=== PATIENT | male | born 1950 | race Caucasian/White ===

== ENCOUNTER 2016-05-03 10:34 | Outpatient (CLI) | payer MEDICARE | END 2016-05-03 10:35 | disposition home or self-care (01) | DX: C91.10 Chronic lymphocytic leukemia of B-cell type not having achieved remission (principal) ==

== ENCOUNTER 2016-05-10 08:30 | Outpatient (CLI) | payer MEDICARE | END 2016-05-10 08:31 | disposition home or self-care (01) | DX: C91.10 Chronic lymphocytic leukemia of B-cell type not having achieved remission (principal) ==

== ENCOUNTER 2016-05-22 13:46 | Outpatient (CLI) | payer MEDICARE | END 2016-05-22 13:47 | disposition home or self-care (01) | DX: C91.10 Chronic lymphocytic leukemia of B-cell type not having achieved remission (principal) ==

== ENCOUNTER 2016-06-09 10:05 | Outpatient (CLI) | payer MEDICARE | END 2016-06-09 10:06 | disposition home or self-care (01) | DX: C91.10 Chronic lymphocytic leukemia of B-cell type not having achieved remission (principal) ==

== ENCOUNTER 2016-07-16 09:43 | Outpatient (CLI) | payer MEDICARE | END 2016-07-16 09:44 | disposition home or self-care (01) | DX: R16.1 Splenomegaly, not elsewhere classified (principal); C91.10 Chronic lymphocytic leukemia of B-cell type not having achieved remission; D59.1 Other autoimmune hemolytic anemias ==

== ENCOUNTER 2016-07-16 09:48 | Outpatient (CLI) | payer MEDICARE | END 2016-07-16 09:49 | disposition home or self-care (01) | DX: C91.10 Chronic lymphocytic leukemia of B-cell type not having achieved remission (principal); R16.1 Splenomegaly, not elsewhere classified; D59.1 Other autoimmune hemolytic anemias ==

== ENCOUNTER 2016-07-21 10:10 | Outpatient (CLI) | payer MEDICARE | END 2016-07-21 10:11 | disposition home or self-care (01) | DX: C91.10 Chronic lymphocytic leukemia of B-cell type not having achieved remission (principal) ==

== ENCOUNTER 2016-07-24 09:18 | Outpatient (CLI) | payer MEDICARE | END 2016-07-24 09:19 | disposition home or self-care (01) | DX: C91.10 Chronic lymphocytic leukemia of B-cell type not having achieved remission (principal) ==

== ENCOUNTER 2016-08-09 09:19 | Outpatient (CLI) | payer MEDICARE | END 2016-08-09 09:20 | disposition home or self-care (01) | DX: C91.10 Chronic lymphocytic leukemia of B-cell type not having achieved remission (principal) ==

== ENCOUNTER 2016-08-25 09:50 | Outpatient (CLI) | payer MEDICARE | END 2016-08-25 09:51 | disposition home or self-care (01) | DX: C91.10 Chronic lymphocytic leukemia of B-cell type not having achieved remission (principal) ==

== ENCOUNTER 2016-09-05 09:53 | Outpatient (CLI) | payer MEDICARE | END 2016-09-05 09:54 | disposition home or self-care (01) | DX: C91.10 Chronic lymphocytic leukemia of B-cell type not having achieved remission (principal) ==

== ENCOUNTER 2016-11-23 10:35 | Outpatient (CLI) | payer MEDICARE ==
[2016-11-23 11:01] LABS: BASOPHILS % (AUTO) 0.2 %; EOSINOPHILS # (AUTO) 0.2 10^3/uL (0.0-0.7); EOSINOPHILS % (AUTO) 8.8 %; HCT - HEMATOCRIT 39.7 % (42.0-52.0); HGB - HEMOGLOBIN 13.6 g/dL (14.0-18.0); LYMPHOCYTES # (AUTO) 0.5 10^3/uL (1.5-3.5); LYMPHOCYTES % (AUTO) 27.2 %; MEAN CORPUSCULAR HEMOGLOBIN 29.4 pg (27.0-31.0); MEAN CORPUSCULAR HGB CONC 34.3 g/dL (32.0-36.0); MEAN CORPUSCULAR VOLUME 85.7 fL (80.0-94.0); MEAN PLATELET VOLUME 8.5 fL (7.4-11.4); MONOCYTES # (AUTO) 0.4 10^3/uL (0.0-1.0); MONOCYTES % (AUTO) 21.2 %; NEUTROPHILS # (AUTO) 0.8 10^3/uL (1.5-6.6); NEUTROPHILS % (AUTO) 42.6 %; NUCLEATED RED BLOOD CELLS AUTO 0.2 /100WBC; RED BLOOD COUNT 4.63 10^6/uL (4.70-6.10); RED CELL DISTRIBUTION WIDTH 14.8 % (12.0-15.0); UNCORRECTED WHITE BLOOD COUNT 1.9 x10^3/uL
[2016-11-23 12:08] LABS: PLATELET ESTIMATE, MANUAL NORMAL (130-450,000) (NORMAL); PLATELET MORPHOLOGY NORMAL APPEARANCE (NORMAL)
[2016-11-23 12:13] LABS: WHITE BLOOD COUNT 1.9 x10^3/uL (4.8-10.8)
== END 2016-11-23 10:36 | disposition home or self-care (01) ==
LOC: LAB 10:35
PROVIDERS: ATTEND Internal Medicine Medical Oncology
DX: C91.10 Chronic lymphocytic leukemia of B-cell type not having achieved remission (principal)
CPT/HCPCS: 36415; 85025

== ENCOUNTER 2016-12-21 10:59 | Outpatient (CLI) | payer MEDICARE ==
[2016-12-21 11:11] LABS: BASOPHILS % (AUTO) 0.4 %; EOSINOPHILS # (AUTO) 0.1 10^3/uL (0.0-0.7); EOSINOPHILS % (AUTO) 5.8 %; HCT - HEMATOCRIT 40.4 % (42.0-52.0); LYMPHOCYTES # (AUTO) 0.4 10^3/uL (1.5-3.5); LYMPHOCYTES % (AUTO) 20.2 %; MEAN CORPUSCULAR HEMOGLOBIN 29.3 pg (27.0-31.0); MEAN CORPUSCULAR HGB CONC 34.8 g/dL (32.0-36.0); MEAN CORPUSCULAR VOLUME 84.3 fL (80.0-94.0); MEAN PLATELET VOLUME 7.6 fL (7.4-11.4); MONOCYTES # (AUTO) 0.3 10^3/uL (0.0-1.0); MONOCYTES % (AUTO) 16.2 %; NEUTROPHILS # (AUTO) 1.1 10^3/uL (1.5-6.6); NEUTROPHILS % (AUTO) 57.4 %; NUCLEATED RED BLOOD CELLS AUTO 0.4 /100WBC; RED BLOOD COUNT 4.79 10^6/uL (4.70-6.10); RED CELL DISTRIBUTION WIDTH 14.2 % (12.0-15.0); UNCORRECTED WHITE BLOOD COUNT 1.9 x10^3/uL
[2016-12-21 11:27] LABS: WHITE BLOOD COUNT 1.9 x10^3/uL (4.8-10.8)
== END 2016-12-21 11:00 | disposition home or self-care (01) ==
LOC: LAB 10:59
PROVIDERS: ATTEND Internal Medicine Medical Oncology
DX: C91.10 Chronic lymphocytic leukemia of B-cell type not having achieved remission (principal)
CPT/HCPCS: 36415; 85025

== ENCOUNTER 2017-01-05 12:36 | Outpatient (CLI) | payer MEDICARE ==
[2017-01-05 12:50] LABS: BASOPHILS % (AUTO) 0.3 %; EOSINOPHILS # (AUTO) 0.1 10^3/uL (0.0-0.7); EOSINOPHILS % (AUTO) 9.1 %; HCT - HEMATOCRIT 40.3 % (42.0-52.0); HGB - HEMOGLOBIN 13.9 g/dL (14.0-18.0); LYMPHOCYTES # (AUTO) 0.3 10^3/uL (1.5-3.5); MEAN CORPUSCULAR HEMOGLOBIN 29.2 pg (27.0-31.0); MEAN CORPUSCULAR HGB CONC 34.5 g/dL (32.0-36.0); MEAN CORPUSCULAR VOLUME 84.7 fL (80.0-94.0); MEAN PLATELET VOLUME 7.7 fL (7.4-11.4); MONOCYTES # (AUTO) 0.4 10^3/uL (0.0-1.0); MONOCYTES % (AUTO) 43.6 %; NUCLEATED RED BLOOD CELLS AUTO 0.3 /100WBC; RED BLOOD COUNT 4.75 10^6/uL (4.70-6.10); RED CELL DISTRIBUTION WIDTH 14.4 % (12.0-15.0); UNCORRECTED WHITE BLOOD COUNT 0.9 x10^3/uL
[2017-01-05 15:11] LABS: WHITE BLOOD COUNT 0.9 x10^3/uL (4.8-10.8)
[2017-01-05 15:12] LABS: NEUTROPHILS # (AUTO) 0.1 10^3/uL (1.5-6.6)
== END 2017-01-05 12:37 | disposition home or self-care (01) ==
LOC: LAB 12:36
PROVIDERS: ATTEND Internal Medicine Medical Oncology
DX: C91.10 Chronic lymphocytic leukemia of B-cell type not having achieved remission (principal)
CPT/HCPCS: 36415; 85025

== ENCOUNTER 2017-01-07 13:54 | Inpatient (IN) | payer MEDICARE ==
--- NOTE | 2017-01-07 14:41 | ED Physician Documentation ---
History of Present Illness - Stated complaint Stated Complaint: LOW GRADE FEVER - Chief complaint Chief Complaint: Fever - History obtained from History obtained from: Patient, Family () - History of Present Illness Timing: Other (66-year-old gentleman with chronic lymphocytic leukemia currently getting most of his care at the [facility]. He got subcutaneous Rituxan on Sunday, on Sunday his neutrophil count was 250. 2 days ago was 100. He had a confirmed fever at home 100.8 orally earlier today associated with some myalgias but no focal symptoms other than mild persistent cough and chronic urinary issues due to BPH.) Review of Systems Ten Systems: 10 systems reviewed and negative Constitutional: reports: Fever, Chills, Myalgias Throat: denies: Dental pain / toothache, Sore throat Cardiac: denies: Chest pain / pressure, Palpitations GI: denies: Abdominal Pain, Nausea, Diarrhea : denies: Dysuria Skin: denies: Rash PD PAST MEDICAL HISTORY - Past Medical History Cardiovascular: Angina Respiratory: None Neuro: None Endocrine/Autoimmune: None GI: None : None HEENT: None Psych: None Musculoskeletal: None Derm: None - Past Surgical History General: Appendectomy - Present Medications Home Medications: Ambulatory Orders Medication Instructions Recorded Confirmed Vitamin B Complex 1 cap PO DAILY 10/19/14 01/07/17 Ascorbic Acid [Vitamin C] 1,000 mg PO DAILY 01/17/16 01/07/17 Acyclovir 800 mg PO BID 01/07/17 01/07/17 Aspirin 81 mg PO DAILY 01/07/17 01/07/17 Filgrastim [Neupogen] 01/07/17 Levofloxacin 500 mg PO DAILY 01/07/17 01/07/17 Neutra-Phos [K-Phos Neutral] 01/07/17 Pravastatin [Pravachol] 80 mg PO DAILY 01/07/17 01/07/17 Rituximab/Hyaluronidase,Human 01/07/17 [Rituxan Hycela 1,600 mg-26,800] Sulfamethox/Trimeth 800/160 1 tab PO DAILY 01/07/17 01/07/17 [Bactrim Ds] Tamsulosin [Flomax] 0.4 mg PO DAILY 01/07/17 01/07/17 - Allergies Allergies/Adverse Reactions: Allergies Allergy/AdvReac Type Severity Reaction Status Date / Time No Known Drug Allergies Allergy Verified 01/07/17 13:59 - Social History Smoking Status: Former smoker - Family History Family history: reports: Non contributory PD ED PE NORMAL - Vitals Vital signs reviewed: Yes - General General: Alert and oriented X 3, No acute distress - HEENT HEENT: PERRL, EOMI, Pharynx benign - Neck Neck: Supple, no meningeal sign, No bony TTP - Cardiac Cardiac: RRR, No murmur - Respiratory Respiratory: No respiratory distress, Clear bilaterally - Abdomen Abdomen: Normal bowel sounds, Soft, Non tender - Derm Derm: Normal color, Warm and dry, No rash - Neuro Neuro: Alert and oriented X 3, Normal speech - Psych Psych: Normal mood, Normal affect Results - Vitals Vitals: Vital Signs - 24 hr 01/07/17 01/07/17 13:57 15:48 Temperature 37.4 C 38.0 C H Heart Rate 83 74 Respiratory 20 16 Rate Blood Pressure 132/72 H 126/71 O2 Saturation 100 100 Oxygen O2 Source Room air - Labs Labs: Laboratory Tests 01/07/17 01/07/17 01/07/17 14:49 14:49 14:49 WBC 0.8 L* RBC 4.52 L Hgb 13.2 L Hct 37.6 L MCV 83.3 MCH 29.1 MCHC 35.0 RDW 14.5 Plt Count 89 L MPV 8.0 Neut # [employer]ITIME OFFICER Lymph # MARITIME OFFICER [place] # MARITIME OFFICER Eos # MARITIME OFFICER Baso # MARITIME OFFICER Absolute Nucleated RBC MARITIME OFFICER Band Neuts % (Manual) 4 Neutrophils # (Manual) 0.0 L* Lymphocytes # (Manual) 0.3 L Monocytes # (Manual) 0.1 Eosinophils # (Manual) 0.1 Nucleated RBCs MARITIME OFFICER Platelet Estimate DECREASED (<130,000) RBC Morph Micro Appear 1+ ANISOCYTOSIS Sodium 133 L Potassium 4.5 Chloride 99 L Carbon Dioxide 28 Anion Gap 6.0 BUN 14 Creatinine 1.2 Estimated GFR (MDRD) 60 L Glucose 101 H Lactic Acid 1.3 Calcium 8.9 Total Bilirubin 2.0 H AST 29 ALT 18 Alkaline Phosphatase 82 Total Protein 5.9 L Albumin 4.0 Globulin 1.9 L Albumin/Globulin Ratio 2.1 Lipase 14 L Urine Color Urine Clarity Urine pH Ur Specific [place] Urine Protein Urine Glucose (UA) Urine Ketones Urine Occult Blood Urine Nitrite Urine Bilirubin Urine Urobilinogen Ur Leukocyte Esterase Ur Microscopic Review Urine Culture Comments 01/07/17 15:00 WBC RBC Hgb Hct MCV MCH MCHC RDW Plt Count MPV Neut # Lymph # [place] # Eos # Baso # Absolute Nucleated RBC Band Neuts % (Manual) Neutrophils # (Manual) Lymphocytes # (Manual) Monocytes # (Manual) Eosinophils # (Manual) Nucleated RBCs Platelet Estimate RBC Morph Micro Appear Sodium Potassium Chloride Carbon Dioxide Anion Gap BUN Creatinine Estimated GFR (MDRD) Glucose Lactic Acid Calcium Total Bilirubin AST ALT Alkaline Phosphatase Total Protein Albumin Globulin Albumin/Globulin Ratio Lipase Urine Color YELLOW Urine Clarity CLEAR Urine pH 7.5 Ur Specific [place] 1.010 Urine Protein NEGATIVE Urine Glucose (UA) NEGATIVE Urine Ketones NEGATIVE Urine Occult Blood NEGATIVE Urine Nitrite NEGATIVE Urine Bilirubin NEGATIVE Urine Urobilinogen 1 (NORMAL) Ur Leukocyte Esterase NEGATIVE Ur Microscopic Review NOT INDICATED Urine Culture Comments NOT INDICATED - Rads (name of study) 2v chest Radiology: EMP read contemporaneously (NAD) PD MEDICAL DECISION MAKING - ED course ED course: 66-year-old gentleman presents with neutropenic fever, no clinical source. He was cultured up. I spoke with Dr. Ayala for admission who wondered if he might be dischargeable. He is on Levaquin for the last 4 days and chronically on acyclovir and Bactrim. I spoke with his oncologist, Dr. Diggs who felt that he was neutropenic he should be admitted on cefepime. Departure - Departure Disposition: 64 [facility] DC/Xfer Clinical Impression: Febrile neutropenia Condition: Stable
[2017-01-07] MEDS ORDERED: CEFEPIME 2 GM in SODIUM CHLORIDE 0.9% MINIBAG 100 ML IV STA ×2 (14:43→15:46)
[2017-01-07] MEDS ORDERED: SODIUM CHLORIDE FLUSH 0.9% 10 ML SYRINGE IVP ONE ×2 (14:53→16:41)
[2017-01-07 15:14] LABS: ALBUMIN/GLOBULIN RATIO 2.1 (1.0-2.2); CALCIUM 8.9 mg/dL (8.5-10.3); CREATININE 1.2 mg/dL (0.6-1.2); POTASSIUM 4.5 mmol/L (3.5-5.0); TOTAL PROTEIN 5.9 g/dL (6.7-8.2)
[2017-01-07 15:17] LABS: BASOPHILS % (AUTO) 0.1 %; EOSINOPHILS % (AUTO) 7.2 %; HCT - HEMATOCRIT 37.6 % (42.0-52.0); HGB - HEMOGLOBIN 13.2 g/dL (14.0-18.0); MEAN CORPUSCULAR HEMOGLOBIN 29.1 pg (27.0-31.0); MEAN CORPUSCULAR VOLUME 83.3 fL (80.0-94.0); MONOCYTES % (AUTO) 59.2 %; NEUTROPHILS % (AUTO) 9.5 %; RED BLOOD COUNT 4.52 10^6/uL (4.70-6.10); RED CELL DISTRIBUTION WIDTH 14.5 % (12.0-15.0); UNCORRECTED WHITE BLOOD COUNT 0.8 x10^3/uL
[2017-01-07 15:19] LABS: WHITE BLOOD COUNT 0.8 x10^3/uL (4.8-10.8)
[2017-01-07 15:32] LABS: BILIRUBIN,URINE NEGATIVE (NEGATIVE); PH,URINE 7.5 PH (5.0-7.5)
[2017-01-07 15:37] LABS: UA CHARGE (STRIP ONLY) YES; UR CULTURE IF IND NOT INDICATED
--- NOTE | 2017-01-07 15:46 | XRAY Preliminary Report ---
Exam: XR Chest 2 View PA/LAT IMPRESSION: Normal 2-view chest radiography. [facility] SITE ID: [id number]
--- NOTE | 2017-01-07 15:49 | XRAY Report ---
EXAM: CHEST RADIOGRAPHY EXAM DATE: 01/07/2017 03:13 PM. CLINICAL HISTORY: Neutropenic fever. COMPARISON: Chest x-ray 07/16/2006. TECHNIQUE: 2 views. FINDINGS: Lungs/Pleura: No focal opacities evident. No pleural effusion. No pneumothorax. Normal volumes. Mediastinum: Heart and mediastinal contours are unremarkable. Other: None. IMPRESSION: Normal 2-view chest radiography. [facility] Referring Provider Line: [phone] SITE ID: [id number]
[2017-01-07 16:00] LABS: NEUTROPHILS % (MANUAL) 2 %
[2017-01-07 16:01] LABS: BAND NEUTROPHILS % (MANUAL) 4 %; EOSINOPHILS % (MANUAL) 18 %; LYMPHOCYTES % (MANUAL) 40 %
[2017-01-07 16:02] LABS: PLATELET ESTIMATE, MANUAL DECREASED (<130,000) (NORMAL)
[2017-01-07 16:04] LABS: NP AUTO DIFFERENTIAL? YES
[2017-01-07] MEDS ORDERED: ACETAMINOPHEN 500 MG TABLET PO STA (16:07)
[2017-01-07] MEDS ORDERED: ACETAMINOPHEN 500 MG TABLET PO ONE (16:13)
[2017-01-07] MEDS ORDERED: ONDANSETRON 4 MG/2 ML VIAL IVP PRN (16:41)
[2017-01-07] MEDS ORDERED: SODIUM CHLORIDE FLUSH 0.9% 10 ML SYRINGE IVP PRN (16:41)
[2017-01-07] MEDS ORDERED: ZOLPIDEM 5 MG TABLET PO PRN (16:41)
--- NOTE | 2017-01-07 17:32 | HISTORY & PHYSICAL EXAMINATION ---
Chief Complaint - Chief Complaint Chief Complaint: fever History of Present Illness - Admitted From Admitted From:: emergence department - History Obtained From History obtained from: patient - History of Present Illness HPI Comment/Other: This is a 66-year-old with a post medical history significant for chronic lymphocytic leukemia currently on chemotherapy, [place] with two stents, Angina, BPH , hyperlipidemia, who present emergence department for evaluation of fever. Patient report he has been on care of his oncologist , Dr. Diggs. He had subcutaneous Rituxan on Sunday. he report he had a fever 100.8 at home. In the Emergence department, his temperature is 100.4. Patient is oral medication of Levaquin, bactrim, and acyclovir for prevention of neuropenic infection by his oncologist. lab test in ER, his WBC is 0.8, neutrophils is 0, Plt is 89, HGB is 13.2. CXR and UA are unremarkable. unknown clinic source is for neutrogenic fever. The patient's oncologist felt patient should be admitted with IV of Cefepime for neutrogenic fever, per emergence provider notes. Patient denies chest pain, shortness of breathing, headache, abdominal pain, nausea, vomiting, diarrhea, dysuria, hematuria, GI bleeding, vision issue. Review of Systems - Constitutional Constitutional: reports: Fatigue, Fever, Chills. denies: Malaise, Weakness, Poor appetite, Diaphoresis, Night sweats, Weight gain, Weight loss - Eyes Eyes: denies: Pain, Irritation, Amaurosis, Blurred vision, Spots in vision, Field loss, Vision loss - Ears, Nose & Throat Ears, Nose & Throat: denies: Ear pain, Hearing loss, Hearing aids, Tinnitus, Nasal pain, Nosebleeds, Sore throat, Mouth lesions, Bleeding gums - Cardiovascular Cariovascular: denies: Irregular heart rate, Palpitations, Chest pain, Edema, Lightheadedness, Syncope, Exertional dyspnea, Decr. exercise tolerance - Respiratory Respiratory: denies: Cough, Sputum production, Wheezing, Snoring, Hemoptysis, Orthopnea, SOB at rest, SOB with exertion - Gastrointestinal Gastrointestinal: denies: Abdominal pain, Abdominal distention, Constipation, Diarrhea, Black stools, Bloody stools, Nausea, Vomiting, Bile emesis, Jose blood emesis, Coffee grounds emesis - Genitourinary Genitourinary: denies: Dysuria, Frequency, Urgency, Hematuria, Incontinence, Flank pain, Urethral discharge - Musculoskeletal Musculoskeletal: denies: Muscle pain, Back pain, Muscle aches, Stiffness, Limited range of motion, Muscle weakness, Gout, Joint pain - Integumentary Integumentary: denies: Rash, Pruritis, Lesions, Dryness, Lumps, Acne, Pigment changes - Neurological Neurological: denies: General weakness, Focal weakness, Headache, Dizziness, Numbness, Memory problems, Pre-existing deficit, Abnormal gait, Seizures, Incoordination, Slurred speech - Psychiatric Psychiatric: denies: Depression, Anxiety, Suicidal, Delusions, Hallucinations, Homicidal - Endocrine Endocrine: denies: Polyuria, Polydypsia, Polyphagia, Intolerance to cold, Intolerance to heat - Hematologic/Lymphatic Hematologic/Lymphatic: denies: Anemia, Bruising, Petechiae, Blood clots, Lymphadenopathy, Bleeding tendencies History - Past Medical History Cardiovascular: reports: Angina Respiratory: reports: None Neuro: reports: None Endocrine/Autoimmune: reports: None GI: reports: None : reports: None HEENT: reports: None Psych: reports: None Musculoskeletal: reports: None Derm: reports: None MRSA Hx?: No Other Past Medical History: CLL - Past Surgical History General: reports: Appendectomy Cardiovascular: reports: Coronary stent - Family & Social History Family History: Mother: (Mom from lung cancer, Father from aneusyn), Cancer, Father: Family History Comment/Other: pt live with his spouse on [facility] [address] [address] [facility], has two children at 33, and 31. Living arrangement: At home Living Situation: With spouse/s.o. Social History Notes: pt report he quit ciagrette smoking 30yrs ago, but now occasionally he use Majuanan. Pt denies alcohol and drug problem - Substance History Use: Uses substance without health or social issues: NONE Abuse: Recurrent use of substance despite neg consequences: NONE Dependence: Experiences withdrawal or developed tolerances: NONE - POLST Patient has POLST: Yes POLST Status: Full Code (pt state he want to be full code) Meds/Allgy - Home Medications Home Medications: Ambulatory Orders Medication Instructions Recorded Confirmed Vitamin B Complex 1 cap PO DAILY 10/19/14 01/07/17 Ascorbic Acid [Vitamin C] 1,000 mg PO DAILY 01/17/16 01/07/17 Acyclovir 800 mg PO BID 01/07/17 01/07/17 Aspirin 81 mg PO DAILY 01/07/17 01/07/17 Filgrastim [Neupogen] 01/07/17 Levofloxacin 500 mg PO DAILY 01/07/17 01/07/17 Neutra-Phos [K-Phos Neutral] 01/07/17 Pravastatin [Pravachol] 80 mg PO DAILY 01/07/17 01/07/17 Rituximab/Hyaluronidase,Human 01/07/17 [Rituxan Hycela 1,600 mg-26,800] Sulfamethox/Trimeth 800/160 1 tab PO DAILY 01/07/17 01/07/17 [Bactrim Ds] Tamsulosin [Flomax] 0.4 mg PO DAILY 01/07/17 01/07/17 - Allergies Allergies/Adverse Reactions: Allergies Allergy/AdvReac Type Severity Reaction Status Date / Time No Known Drug Allergies Allergy Verified 01/07/17 13:59 Exam - Vital Signs Reviewed Vital Signs: Yes Vital Signs: Vital Signs x48h Temp Pulse Resp BP Pulse Ox 01/07/17 17:26 38 C H 79 16 119/61 93 - Physical Exam General Appearance: positive: No acute distress, Alert. negative: Lethargic Eyes Bilateral: positive: Normal inspection, PERRL, No lid inflammation, Conjunctivae nml ENT: positive: ENT inspection nml, Pharynx nml, No signs of dehydration. negative: Purulent nasal drainage, Pharyngeal erythema Neck: positive: Nml inspection, Thyroid nml, No JVD, Trachea midline. negative : Thyromegaly, Lymphadenopathy (R), Lymphadenopathy (L), Stiff neck, Swelling/ bruising Respiratory: positive: Chest non-tender, No respiratory distress, Breath sounds nml. negative: Wheezes, Rales, Rhonchi Cardiovascular: positive: Regular rate & rhythm, No murmur, No gallop. negative : Tachycardia, Bradycardia, Systolic murmur, Diastolic murmur Peripheral Pulses: positive: 2+ Abdomen: positive: Non-tender, No organomegaly, Nml bowel sounds, No distention. negative: Tenderness, Guarding, Rebound Back: positive: Nml inspection. negative: CVA tenderness (R), CVA tenderness (L ) Skin: positive: Color nml, No rash, Warm, Dry. negative: Cyanosis, Diaphoresis , Pallor, Skin rash Extremities: positive: Non-tender, Full ROM, Nml appearance. negative: Calf tenderness, Rommel's sign/cords Neurologic/Psychiatric: positive: Oriented x3, Mood/affect nml. negative: Motor nml, Sensation nml, Sensory loss, Facial droop, Slurred/abnml speech, Depressed mood/affect Conclusion/Plan - Problem List (1) Febrile neutropenia Conclusion/Plan: no known source. neutropenic precaution blood culture, pending, follow up Cefepime IV, po of bactrim and acyclovir neutropenic diet (2) Chronic lymphatic leukemia Conclusion/Plan: hold Rituxan now, resume home meds of Neutrogen daily lab monitor, tele, vital (3) Dehydration Conclusion/Plan: pt has slight elevated creatinine and BUN, hydration with mild IVF (4) BPH (benign prostatic hyperplasia) Conclusion/Plan: stable, resume home meds (5) CAD (coronary artery disease) Conclusion/Plan: history of CAD with two stents, stable, tele, vital resume home meds (6) Hyperlipemia Conclusion/Plan: stable, resume home meds (7) DVT prophylaxis Conclusion/Plan: SCD, and with heparin 5000unit daily. Pt is on moderate high risk for DVT due to current cancer, but pt' Plt is lower, so daily Heparin 5000 unit now. - Lab Results Fish Bones: 01/07/17 14:49 01/07/17 14:49 Issues/Core Measures - Anticipated LOS Anticipated Stay Length: 2 or more midnights (the nature of neutrogenic fever) - DVT/VTE - Prophylaxis VTE/DVT Device ordered at admit?: Yes VTE/DVT Prophylaxis med ordered at admit?: Yes
[2017-01-07] MEDS: SODIUM CHLORIDE 0.9% 1,000 ML IV SCH (18:00)
[2017-01-07] MEDS: PRAVASTATIN 40 MG TABLET PO SCH (19:41)
[2017-01-07] MEDS: SODIUM CHLORIDE FLUSH 0.9% 10 ML SYRINGE IVP SCH (19:42)
[2017-01-07] MEDS: ACYCLOVIR 200 MG CAPSULE PO SCH (20:00)
[2017-01-07] MEDS: ASPIRIN CHEW 81 MG TABLET PO SCH (20:01)
[2017-01-07] MEDS: CEFEPIME 2 GM in SODIUM CHLORIDE 0.9% MINIBAG 100 ML IV SCH (20:01)
[2017-01-07] MEDS: ACETAMINOPHEN 325 MG TABLET PO PRN (21:01)
[2017-01-08] MEDS: ACETAMINOPHEN 325 MG TABLET PO PRN ×3 (03:28→20:25)
[2017-01-08] MEDS: SODIUM CHLORIDE FLUSH 0.9% 10 ML SYRINGE IVP SCH ×3 (04:48→20:33)
[2017-01-08] MEDS: SODIUM CHLORIDE 0.9% 1,000 ML IV SCH ×2 (04:54→16:39)
[2017-01-08 05:47] LABS: BASOPHILS % (AUTO) 0.1 %; EOSINOPHILS % (AUTO) 3.4 %; HCT - HEMATOCRIT 35.9 % (42.0-52.0); HGB - HEMOGLOBIN 12.5 g/dL (14.0-18.0); LYMPHOCYTES # (AUTO) 0.2 10^3/uL (1.5-3.5); LYMPHOCYTES % (AUTO) 16.6 %; MEAN CORPUSCULAR HEMOGLOBIN 29.4 pg (27.0-31.0); MEAN CORPUSCULAR HGB CONC 34.8 g/dL (32.0-36.0); MEAN CORPUSCULAR VOLUME 84.4 fL (80.0-94.0); MEAN PLATELET VOLUME 8.5 fL (7.4-11.4); MONOCYTES % (AUTO) 0.3 %; NEUTROPHILS # (AUTO) 0.8 10^3/uL (1.5-6.6); NEUTROPHILS % (AUTO) 79.6 %; NUCLEATED RED BLOOD CELLS AUTO 0.4 /100WBC; RED BLOOD COUNT 4.25 10^6/uL (4.70-6.10); RED CELL DISTRIBUTION WIDTH 14.3 % (12.0-15.0)
[2017-01-08 05:58] LABS: ALBUMIN/GLOBULIN RATIO 1.9 (1.0-2.2); BILIRUBIN,TOTAL 2.3 mg/dL (0.2-1.0); CALCIUM 8.6 mg/dL (8.5-10.3); CREATININE 1.2 mg/dL (0.6-1.2); MAGNESIUM 1.5 mg/dL (1.7-2.8); POTASSIUM 4.1 mmol/L (3.5-5.0); TOTAL PROTEIN 5.5 g/dL (6.7-8.2)
[2017-01-08 06:29] LABS: PLATELET ESTIMATE, MANUAL DECREASED (<130,000) (NORMAL); PLATELET MORPHOLOGY NORMAL APPEARANCE (NORMAL)
[2017-01-08] MEDS ORDERED: MAGNESIUM SULFATE 2 GM in SODIUM CHLORIDE 0.9% 50 ML IV ONE (07:50)
[2017-01-08] MEDS ORDERED: MAGNESIUM SULFATE 2 GRAM 50 ML IV SCH (09:00)
[2017-01-08] MEDS ORDERED: ENOXAPARIN 40 MG/0.4 ML SYRINGE SUBQ SCH ×2 (09:00)
[2017-01-08] MEDS ORDERED: PRAVASTATIN 40 MG TABLET PO SCH (09:00)
[2017-01-08] MEDS ORDERED: ASPIRIN CHEW 81 MG TABLET PO SCH (09:00)
[2017-01-08] MEDS: ASCORBIC ACID CHEW 500 MG TABLET PO SCH (09:24)
[2017-01-08] MEDS: ACYCLOVIR 200 MG CAPSULE PO SCH ×2 (09:25→20:24)
[2017-01-08] MEDS: SULFAMETH/TRIMETH DS 800/160 MG TABLET PO SCH (09:25)
[2017-01-08] MEDS: CEFEPIME 2 GM in SODIUM CHLORIDE 0.9% MINIBAG 100 ML IV SCH ×2 (09:25→20:25)
[2017-01-08] MEDS: TAMSULOSIN 0.4 MG CAPSULE PO SCH (09:25)
[2017-01-08] MEDS: POLYETHYLENE GLYCOL 3350 17 GM PACKET PO SCH (09:26)
[2017-01-08] MEDS: VITAMIN B COMPLEX PO SCH (09:26)
[2017-01-08] MEDS: FAMOTIDINE 20 MG TABLET PO SCH (09:26)
[2017-01-08] MEDS: HEPARIN 5,000 UNIT/ML VIAL SUBQ SCH ×2 (10:24→11:10)
--- NOTE | 2017-01-08 12:52 | PROVIDER PROGRESS NOTE ---
Subjective - Prog Note Date Prog Note Date: 01/08/17 - Subjective Pt reports feeling: Improved Subjective: last night pt still had lower degree fever. today morning, it is great controlled, no fever reported. No other complaints reported. Current Medications - Current Medications Current Medications: Active Medications Acetaminophen (Tylenol) 650 mg PO Q4HR PRN PRN Reason: Pain 1 to 4 Last Admin: 01/08/17 03:28 Dose: 650 mg Acyclovir (Zovirax) 800 mg PO BID [facility] Last Admin: 01/08/17 09:25 Dose: 800 mg Ascorbic Acid (Vitamin C) 1,000 mg PO DAILY [facility] Last Admin: 01/08/17 09:24 Dose: 1,000 mg Aspirin (St Duy Aspirin) 81 mg PO QPM [facility] Last Admin: 01/07/17 20:01 Dose: 81 mg Famotidine (Pepcid) 20 mg PO DAILY [facility] Last Admin: 01/08/17 09:26 Dose: Not Given Heparin Sodium (Porcine) () 5,000 unit SUBQ DAILY [facility] Last Admin: 01/08/17 11:10 Dose: Not Given Sodium Chloride (Normal Saline 0.9%) 1,000 mls @ 100 mls/hr IV .Q10H [facility] Last Admin: 01/08/17 04:54 Dose: 100 mls/hr Cefepime HCl 2 gm/ Sodium (Chloride) 100 mls @ 200 mls/hr IV BID [facility] Last Admin: 01/08/17 09:25 Dose: 200 mls/hr Ondansetron HCl (Zofran Inj) 4 mg IVP Q6HR PRN PRN Reason: Nausea / Vomiting (Vitamin B Complex [ Vitamin B Complex] 1 Cap) 1 each PO DAILY [facility] Last Admin: 01/08/17 09:26 Dose: Not Given Polyethylene Glycol (Miralax) 17 gm PO DAILY [facility] Last Admin: 01/08/17 09:26 Dose: Not Given Pravastatin Sodium (Pravachol) 80 mg PO QPM [facility] Last Admin: 01/07/17 19:41 Dose: Not Given Sodium Chloride (Normal Saline Flush 0.9%) 10 ml IVP PRN PRN PRN Reason: NEEDED PER PROVIDER ORDERS Sodium Chloride (Normal Saline Flush 0.9%) 10 ml IVP Q8HR [facility] Last Admin: 01/08/17 04:48 Dose: Not Given Tamsulosin HCl (Flomax) 0.4 mg PO DAILY [facility] Last Admin: 01/08/17 09:25 Dose: 0.4 mg Trimethoprim/Sulfamethoxazole (Bactrim Ds 800/160) 1 tab PO DAILY [facility] Last Admin: 01/08/17 09:25 Dose: 1 tab Zolpidem Tartrate (Ambien) 5 mg PO QPM PRN PRN Reason: Insomnia Vitamin B Complex 1 cap PO DAILY 10/19/14 Ascorbic Acid [Vitamin C] 1,000 mg PO DAILY 01/17/16 Acyclovir 800 mg PO BID 01/07/17 Aspirin 81 mg PO DAILY 01/07/17 Filgrastim [Neupogen] 01/07/17 Levofloxacin 500 mg PO DAILY 01/07/17 Neutra-Phos [K-Phos Neutral] 01/07/17 Pravastatin [Pravachol] 80 mg PO DAILY 01/07/17 Rituximab/Hyaluronidase,Human [Rituxan Hycela 1,600 mg-26,800] 01/07/17 Sulfamethox/Trimeth 800/160 [Bactrim Ds] 1 tab PO DAILY 01/07/17 Tamsulosin [Flomax] 0.8 mg PO DAILY 01/07/17 Objective - Vital Signs/Intake & Output Reviewed Vital Signs: Yes Vital Signs: Vital Signs x48h Temp Pulse Resp BP Pulse Ox 01/08/17 12:18 37.3 C 83 16 120/58 L 99 01/08/17 08:11 37.0 C 78 16 113/60 98 Intake & Output: Intake & Output 01/05/17 01/06/17 01/07/17 01/08/17 23:59 23:59 23:59 23:59 Intake Total 120 1063 Balance 120 1063 - Objective General Appearance: positive: No acute distress, Alert. negative: Lethargic Eyes Bilateral: positive: EOMI, No lid inflammation, Conjunctivae nml. negative : Normal inspection, PERRL ENT: positive: ENT inspection nml, Pharynx nml, No signs of dehydration. negative: Purulent nasal drainage, Pharyngeal erythema, Oral lesions Neck: positive: Nml inspection, Thyroid nml, No JVD, Trachea midline. negative : Thyromegaly, Lymphadenopathy (R), Lymphadenopathy (L), Kernig's sign, Swelling /bruising, Tracheal deviation Respiratory: positive: Chest non-tender, No respiratory distress, Breath sounds nml. negative: Wheezes, Rales, Rhonchi Cardiovascular: positive: Regular rate & rhythm, No murmur, No gallop. negative : Tachycardia, Bradycardia, Systolic murmur, Diastolic murmur Peripheral Pulses: 2+ Radial (R), 2+ Radial (L), 2+ Dorsalis pedis (R), 2+ Dorsalis pedis (L) Abdomen: positive: Non-tender, Nml bowel sounds, No distention. negative: Tenderness, Guarding, Rebound Back: positive: Nml inspection. negative: CVA tenderness (R), CVA tenderness (L ) Skin: positive: Color nml, No rash, Warm, Dry. negative: Cyanosis, Diaphoresis , Pallor, Skin rash Extremities: positive: Non-tender, Full ROM, Nml appearance. negative: Calf tenderness, Joint swelling, Rommel's sign/cords Neurologic/Psychiatric: positive: Oriented x3, Motor nml, Sensation nml, Mood/ affect nml. negative: Sensory loss, Facial droop, Slurred/abnml speech, Depressed mood/affect - Lab Results Fish Bones: 01/08/17 04:52 01/08/17 04:52 Other Labs: Lab Results x24hrs 01/08/17 01/08/17 Range/Units 04:52 04:52 WBC 1.0 L* (4.8-10.8) x10^3/uL RBC 4.25 L (4.70-6.10) 10^6/uL Hgb 12.5 L (14.0-18.0) g/dL Hct 35.9 L (42.0-52.0) % MCV 84.4 (80.0-94.0) fL MCH 29.4 (27.0-31.0) pg MCHC 34.8 (32.0-36.0) g/dL RDW 14.3 (12.0-15.0) % Plt Count 79 L (130-450) 10^3/uL MPV 8.5 (7.4-11.4) fL Neut # 0.8 L (1.5-6.6) 10^3/uL Lymph # 0.2 L (1.5-3.5) 10^3/uL Jones # 0.0 (0.0-1.0) 10^3/uL Eos # 0.0 (0.0-0.7) 10^3/uL Baso # 0.0 (0.0-0.1) 10^3/uL Absolute Nucleated RBC 0.00 x10^3/uL Nucleated RBCs 0.4 /100WBC Manual Slide Review Indicated Platelet Estimate DECREASED (<130,000) (NORMAL) Platelet Morphology NORMAL APPEARANCE (NORMAL) RBC Morph Micro Appear 1+ ANISOCYTOSIS (NORMAL) Sodium 133 L (135-145) mmol/L Potassium 4.1 (3.5-5.0) mmol/L Chloride 101 (101-111) mmol/L Carbon Dioxide 24 (21-32) mmol/L Anion Gap 8.0 (6-13) BUN 15 (6-20) mg/dL Creatinine 1.2 (0.6-1.2) mg/dL Estimated GFR (MDRD) 60 L (>89) Glucose 112 H (70-100) mg/dL Calcium 8.6 (8.5-10.3) mg/dL Magnesium 1.5 L (1.7-2.8) mg/dL Total Bilirubin 2.3 H (0.2-1.0) mg/dL AST 28 (10-42) IU/L ALT 15 (10-60) IU/L Alkaline Phosphatase 61 (42-121) IU/L Total Protein 5.5 L (6.7-8.2) g/dL Albumin 3.6 (3.2-5.5) g/dL Globulin 1.9 L (2.1-4.2) g/dL Albumin/Globulin Ratio 1.9 (1.0-2.2) Assessment/Plan - Problem List (1) Febrile neutropenia Impression: - Problem List (1) Febrile neutropenia Conclusion/Plan: last night pt still had lower degree fever, but morning, no fever reported. UA and CXR unremarkable. continue current treatment, follow up blood culture continue vital closely monitor no known source. neutropenic precaution blood culture, pending, follow up Cefepime IV, po of bactrim and acyclovir neutropenic diet (2) Chronic lymphatic leukemia Conclusion/Plan: stable, continue hole Rituxan daily lab, vital hold Rituxan now, resume home meds of Neutrogen daily lab monitor, tele, vital (3) Dehydration Conclusion/Plan: it appears it is pt's baseline for his kidney function. pt has slight elevated creatinine and BUN, hydration with mild IVF (4) BPH (benign prostatic hyperplasia) Conclusion/Plan: stable, resume home meds (5) CAD (coronary artery disease) Conclusion/Plan: history of CAD with two stents, stable, tele, vital resume home meds (6) Hyperlipemia Conclusion/Plan: stable, resume home meds
[2017-01-08] MEDS: SACCHAROMYCES BOULARDII 250 MG CAPSULE PO SCH (16:35)
[2017-01-08] MEDS: PRAVASTATIN 40 MG TABLET PO SCH (20:25)
[2017-01-08] MEDS: ASPIRIN CHEW 81 MG TABLET PO SCH (20:25)
[2017-01-09] MEDS: SODIUM CHLORIDE 0.9% 1,000 ML IV SCH (03:10)
[2017-01-09] MEDS: SODIUM CHLORIDE FLUSH 0.9% 10 ML SYRINGE IVP SCH (05:20)
[2017-01-09] MEDS: ACETAMINOPHEN 325 MG TABLET PO PRN (05:20)
[2017-01-09 05:52] LABS: BASOPHILS % (AUTO) 0.2 %; EOSINOPHILS # (AUTO) 0.1 10^3/uL (0.0-0.7); EOSINOPHILS % (AUTO) 2.5 %; HCT - HEMATOCRIT 36.7 % (42.0-52.0); HGB - HEMOGLOBIN 12.6 g/dL (14.0-18.0); LYMPHOCYTES # (AUTO) 0.3 10^3/uL (1.5-3.5); LYMPHOCYTES % (AUTO) 11.3 %; MEAN CORPUSCULAR HGB CONC 34.4 g/dL (32.0-36.0); MEAN CORPUSCULAR VOLUME 84.2 fL (80.0-94.0); MEAN PLATELET VOLUME 8.4 fL (7.4-11.4); MONOCYTES # (AUTO) 0.7 10^3/uL (0.0-1.0); MONOCYTES % (AUTO) 30.8 %; NEUTROPHILS # (AUTO) 1.2 10^3/uL (1.5-6.6); NEUTROPHILS % (AUTO) 55.2 %; NUCLEATED RED BLOOD CELLS AUTO 0.4 /100WBC; RED BLOOD COUNT 4.36 10^6/uL (4.70-6.10); RED CELL DISTRIBUTION WIDTH 14.7 % (12.0-15.0); UNCORRECTED WHITE BLOOD COUNT 2.3 x10^3/uL; WHITE BLOOD COUNT 2.3 x10^3/uL (4.8-10.8)
[2017-01-09 06:03] LABS: ALBUMIN/GLOBULIN RATIO 1.8 (1.0-2.2); BILIRUBIN,TOTAL 2.4 mg/dL (0.2-1.0); CALCIUM 8.6 mg/dL (8.5-10.3); CREATININE 1.1 mg/dL (0.6-1.2); POTASSIUM 4.3 mmol/L (3.5-5.0); TOTAL PROTEIN 5.6 g/dL (6.7-8.2)
[2017-01-09 06:30] LABS: PLATELET ESTIMATE, MANUAL DECREASED (<130,000) (NORMAL); PLATELET MORPHOLOGY NORMAL APPEARANCE (NORMAL)
[2017-01-09] MEDS: HEPARIN 5,000 UNIT/ML VIAL SUBQ SCH (07:57)
[2017-01-09 08:05] VITALS: BP 109/61
--- NOTE | 2017-01-09 08:08 | PROVIDER PROGRESS NOTE ---
Assessment/Plan - Current Meds Current Meds: Current Medications Generic Name Dose Route Start Last Admin Trade Name Freq PRN Reason Stop Dose Admin Acetaminophen 650 mg 01/07/17 16:41 01/09/17 05:20 Tylenol PO 650 mg Q4HR PRN Administration Pain 1 to 4 Acyclovir 800 mg 01/07/17 21:00 01/08/17 20:24 Zovirax PO 800 mg BID TJ Administration Ascorbic Acid 1,000 mg 01/08/17 09:00 01/08/17 09:24 Vitamin C PO 1,000 mg DAILY TJ Administration Aspirin 81 mg 01/07/17 21:00 01/08/17 20:25 St Duy Aspirin PO 81 mg QPM TJ Administration Famotidine 20 mg 01/08/17 09:00 01/08/17 09:26 Pepcid PO Not Given DAILY TJ Heparin Sodium (Porcine) 5,000 unit 01/08/17 09:00 01/09/17 07:57 SUBQ Not Given DAILY TJ Sodium Chloride 1,000 mls @ 100 mls/hr 01/07/17 17:00 01/09/17 03:10 Normal Saline 0.9% IV 100 mls/hr .Q10H TJ Administration Cefepime HCl 2 gm/ Sodium 100 mls @ 200 mls/hr 01/07/17 21:00 01/08/17 20:25 Chloride IV 200 mls/hr BID TJ Administration (Vitamin B Complex [ 1 each 01/08/17 09:00 01/08/17 09:26 Vitamin B Complex] 1 PO Not Given Cap) DAILY TJ Polyethylene Glycol 17 gm 01/08/17 09:00 01/08/17 09:26 Miralax PO Not Given DAILY TJ Pravastatin Sodium 80 mg 01/07/17 21:00 01/08/17 20:25 Pravachol PO 80 mg QPM TJ Administration Saccharomyces Boulardii 250 mg 01/08/17 17:00 01/08/17 16:35 Florastor PO 250 mg BIDWM TJ Administration Sodium Chloride 10 ml 01/07/17 22:00 01/09/17 05:20 Normal Saline Flush 0.9% IVP 10 ml Q8HR TJ Administration Tamsulosin HCl 0.4 mg 01/08/17 09:00 01/08/17 09:25 Flomax PO 0.4 mg DAILY TJ Administration Trimethoprim/Sulfamethoxazole 1 tab 01/08/17 09:00 01/08/17 09:25 Bactrim Ds 800/160 PO 1 tab DAILY TJ Administration - Lab Result Lab results reviewed: Yes Fish Bone Diagrams: 01/09/17 05:20 01/09/17 05:20 - EKG Results EKG Interpreted Independently: No - Additional Planning My Orders: My Active Orders 01/09/17 08:07 MAGNESIUM [CHEM] Routine Objective Vital Signs: Vital Signs - 24 hr 01/08/17 01/08/17 01/08/17 08:11 12:18 15:31 Temperature 37.0 C 37.3 C 37 C Heart Rate [ 78 83 77 Brachial] Respiratory 16 16 16 Rate Blood Pressure 113/60 120/58 L 109/59 L [Right Brachial artery] O2 Saturation 98 99 98 01/08/17 01/08/17 01/08/17 20:06 21:02 23:49 Temperature 39.2 C H 37.6 C H 36.6 C Heart Rate [ 91 81 Brachial] Respiratory 16 16 Rate Blood Pressure 124/59 L 111/60 [Right Brachial artery] O2 Saturation 95 99 01/09/17 01/09/17 01/09/17 05:18 06:47 08:04 Temperature 37.6 C H 37.1 C 37.0 C Heart Rate [ 69 67 Brachial] Respiratory 16 Rate Blood Pressure 118/55 L 109/61 [Right Brachial artery] O2 Saturation 98 98 Oxygen O2 Source Room air I&O (Last 24 Hrs): Intake and Output Totals x24h 01/07/17 01/08/17 01/09/17 23:59 23:59 23:59 Intake Total 120 3763 1048 Balance 120 3763 1048 - Results Results: Laboratory Results WBC 2.3 x10^3/uL (4.8-10.8) L 01/09/17 05:20 RBC 4.36 10^6/uL (4.70-6.10) L 01/09/17 05:20 Hgb 12.6 g/dL (14.0-18.0) L 01/09/17 05:20 Hct 36.7 % (42.0-52.0) L 01/09/17 05:20 MCV 84.2 fL (80.0-94.0) 01/09/17 05:20 MCH 29.0 pg (27.0-31.0) 01/09/17 05:20 MCHC 34.4 g/dL (32.0-36.0) 01/09/17 05:20 RDW 14.7 % (12.0-15.0) 01/09/17 05:20 Plt Count 73 10^3/uL (130-450) L 01/09/17 05:20 MPV 8.4 fL (7.4-11.4) 01/09/17 05:20 Neut # 1.2 10^3/uL (1.5-6.6) L 01/09/17 05:20 Lymph # 0.3 10^3/uL (1.5-3.5) L 01/09/17 05:20 [place] # 0.7 10^3/uL (0.0-1.0) 01/09/17 05:20 Eos # 0.1 10^3/uL (0.0-0.7) 01/09/17 05:20 Baso # 0.0 10^3/uL (0.0-0.1) 01/09/17 05:20 Absolute Nucleated RBC 0.01 x10^3/uL 01/09/17 05:20 Band Neuts % (Manual) 4 % (0-10) 01/07/17 14:49 Neutrophils # (Manual) 0.0 10^3/uL (1.5-6.6) L* 01/07/17 14:49 Lymphocytes # (Manual) 0.3 10^3/uL (1.5-3.5) L 01/07/17 14:49 Monocytes # (Manual) 0.1 10^3/uL (0.0-1.0) 01/07/17 14:49 Eosinophils # (Manual) 0.1 10^3/uL (0-0.7) 01/07/17 14:49 Nucleated RBCs 0.4 /100WBC 01/09/17 05:20 Manual Slide Review Indicated 01/09/17 05:20 Platelet Estimate DECREASED (<130,000) (NORMAL) 01/09/17 05:20 Platelet Morphology NORMAL APPEARANCE (NORMAL) 01/09/17 05:20 RBC Morph Micro Appear 1+ ANISOCYTOSIS (NORMAL) 01/09/17 05:20 Sodium 134 mmol/L (135-145) L 01/09/17 05:20 Potassium 4.3 mmol/L (3.5-5.0) 01/09/17 05:20 Chloride 102 mmol/L (101-111) 01/09/17 05:20 Carbon Dioxide 26 mmol/L (21-32) 01/09/17 05:20 Anion Gap 6.0 (6-13) 01/09/17 05:20 BUN 13 mg/dL (6-20) 01/09/17 05:20 Creatinine 1.1 mg/dL (0.6-1.2) 01/09/17 05:20 Estimated GFR (MDRD) 67 (>89) L 01/09/17 05:20 Glucose 100 mg/dL (70-100) 01/09/17 05:20 Lactic Acid 1.3 mmol/L (0.5-2.2) 01/07/17 14:49 Calcium 8.6 mg/dL (8.5-10.3) 01/09/17 05:20 Magnesium 1.5 mg/dL (1.7-2.8) L 01/08/17 04:52 Total Bilirubin 2.4 mg/dL (0.2-1.0) H 01/09/17 05:20 AST 30 IU/L (10-42) 01/09/17 05:20 ALT 15 IU/L (10-60) 01/09/17 05:20 Alkaline Phosphatase 65 IU/L (42-121) 01/09/17 05:20 Total Protein 5.6 g/dL (6.7-8.2) L 01/09/17 05:20 Albumin 3.6 g/dL (3.2-5.5) 01/09/17 05:20 Globulin 2.0 g/dL (2.1-4.2) L 01/09/17 05:20 Albumin/Globulin Ratio 1.8 (1.0-2.2) 01/09/17 05:20 Lipase 14 U/L (22-51) L 01/07/17 14:49 Urine Color YELLOW 01/07/17 15:00 Urine Clarity CLEAR (CLEAR) 01/07/17 15:00 Urine pH 7.5 PH (5.0-7.5) 01/07/17 15:00 Ur Specific [place] 1.010 (1.002-1.030) 01/07/17 15:00 Urine Protein NEGATIVE mg/dL (NEGATIVE) 01/07/17 15:00 Urine Glucose (UA) NEGATIVE mg/dL (NEGATIVE) 01/07/17 15:00 Urine Ketones NEGATIVE mg/dL (NEGATIVE) 01/07/17 15:00 Urine Occult Blood NEGATIVE (NEGATIVE) 01/07/17 15:00 Urine Nitrite NEGATIVE (NEGATIVE) 01/07/17 15:00 Urine Bilirubin NEGATIVE (NEGATIVE) 01/07/17 15:00 Urine Urobilinogen 1 (NORMAL) E.U./dL (NORMAL) 01/07/17 15:00 Ur Leukocyte Esterase NEGATIVE (NEGATIVE) 01/07/17 15:00 Ur Microscopic Review NOT INDICATED 01/07/17 15:00 Urine Culture Comments NOT INDICATED 01/07/17 15:00
[2017-01-09] MEDS: SULFAMETH/TRIMETH DS 800/160 MG TABLET PO SCH (08:54)
[2017-01-09] MEDS: ASCORBIC ACID CHEW 500 MG TABLET PO SCH (08:54)
[2017-01-09] MEDS: CEFEPIME 2 GM in SODIUM CHLORIDE 0.9% MINIBAG 100 ML IV SCH (08:54)
[2017-01-09] MEDS: SACCHAROMYCES BOULARDII 250 MG CAPSULE PO SCH (08:54)
[2017-01-09] MEDS: ACYCLOVIR 200 MG CAPSULE PO SCH (08:54)
[2017-01-09] MEDS: TAMSULOSIN 0.4 MG CAPSULE PO SCH (08:54)
[2017-01-09] MEDS: POLYETHYLENE GLYCOL 3350 17 GM PACKET PO SCH (08:55)
[2017-01-09] MEDS: FAMOTIDINE 20 MG TABLET PO SCH (08:55)
[2017-01-09] MEDS: VITAMIN B COMPLEX PO SCH (08:55)
[2017-01-09] MEDS ORDERED: FILGRASTIM-SNDZ 480 MCG/0.8 ML SYRINGE SUBQ SCH (09:00)
--- NOTE | 2017-01-09 10:45 | Discharge Plan ---
Discharge Plan Disposition: Home, Self Care Condition: Good Prescriptions: Amox/Clav 875/125 [Augmentin] 1 each PO Q12H #14 tablet Sulfamethox/Trimeth 800/160 [Bactrim Ds] 1 tab PO DAILY #10 tablet Diet: Regular Activity Restrictions: No Restrictions Shower Restrictions: No Driving Restrictions: No Weight Bearing: Full Weight Instruction Topics: Amoxicillin Clavulanic Acid extended-release tablets, Sulfamethoxazole Trimethoprim SMX-TMP tablets, Rituximab injection Additional Instructions or Follow Up instructions: Please continue on home medications as prescribed. Stop the Levaquin. You have been started on Augmentin and continue with Bactrim. Please continue your regular diet you were on before coming to the hospital Please see your oncologist as planned. You will need to let them know you were in the hospital and be sure to also followup with your primary care provider as well within the next week. Return to the ER if you have recurring symptoms or if you experience chest pain or shortness of breath. Call 911 if these symptoms are severe Get plenty of rest and drink plenty of fluids during the day No Smoking: If you smoke, Please STOP! Call for help.
--- NOTE | 2017-01-09 11:10 | DISCHARGE SUMMARY ---
"Discharge Summary Admit Date: 01/07/17 Discharge Date: 01/09/17 Discharging Provider: Luisa Reece Code Status: Attempt Resuscitation Condition at Discharge: Good Discharge Disposition: 01 Home, Self Care Discharge Facility Name: home - DIAGNOSES Admission Diagnoses: 1. Neutropenic fever, acute 2. Chronic lymphocytic leukemia of B-cell type not having achieved remission currently on chemotherapy 3. Chronic enlarged prostate without urinary tract symptoms 4. Hyperlipidemia, unspecified Discharge Diagnoses with Status of Each Condition: 1. ACute neutropenic fever with hyponatremia 2. Chronic lymphocytic leukemia of B-cell type not having achieved remission currently on chemotherapy 3. Chronic enlarged prostate without urinary tract symptoms 4. Hyperlipidemia, unspecified 5. Acute anemia of chronic disease secondary to Chronic lymphocytic leukemia - HPI History of Present Illness: this is a 66-year-old with a post medical history significant for chronic lymphocytic leukemia currently on chemotherapy, [place] with two stents, Angina, BPH , hyperlipidemia, who present emergence department for evaluation of fever. Patient report he has been on care of his oncologist , Dr. Diggs. He had subcutaneous Rituxan on Sunday. he report he had a fever 100.8 at home. In the Emergence department, his temperature is 100.4. Patient is oral medication of Levaquin, bactrim, and acyclovir for prevention of neuropenic infection by his oncologist. lab test in ER, his WBC is 0.8, neutrophils is 0, Plt is 89, HGB is 13.2. CXR and UA are unremarkable. unknown clinic source is for neutrogenic fever. The patient's oncologist felt patient should be admitted with IV of Cefepime for neutrogenic fever, per emergence provider notes. Patient denies chest pain, shortness of breathing, headache, abdominal pain, nausea, vomiting, diarrhea, dysuria, hematuria, GI bleeding, vision issue. T - CONSULTS | PROCEDURES Consultations: none - HOSPITAL COURSE Hospital Course: Patient is a 66-year-old with past medical history significant for chronic lymphocytic leukemia currently on chemotherapy, [place] with two stents, Angina, BPH , hyperlipidemia, who presented to the ER for evaluation of fever. He was admitted for further evaluation. Patient has been under the care of his oncologist , Dr. Diggs. He had received subcutaneous Rituxan on the prior Sunday before admission. He reported having fevers prior to admission and continued to be monitored and given tylenol and IVF while febrile. He had several episodes of fever and was treated. At admission from the ER, his temperature was 100.4. Patient was on oral medication of Levaquin which was stopped and changed to Cefepime IV. The patient's oncologist felt patient should be admitted with IV Cefepime for neutrogenic fever. He continued on bactrim and acyclovir for prevention of infection by his oncologist while inpatient. lHis WBC was found to be 0.8, while in the ER and neutrophils were 0 , Plt were 89, HGB was 13.2. CXR and UA were unremarkable. His WBC improved over the course of treatment inpatient. He was discharged home with WBC at 2.4. His fevers improved and was afebrile at discharge. He was started on Augmentin at discharge orally. He was instructed to continued on Acyclovir and Bactrim. Patient also continued on medications from home for hyperlipidemia and BPH. his output was monitored. His labs were monitored with daily lab draws and electrolytes replaced if needed. He wanted to be discharged on the second day of admission home and his vital signs were stable. He was instructed to continue on antiobiotics as prescribed and to followup with oncologist within 2 days of discharge if possible and no later than 1 week. He verbally understood all instructions given him for discharge by nursing and hospital medicine staff. - ALLERGIES Allergies/Adverse Reactions: Allergies Allergy/AdvReac Type Severity Reaction Status Date / Time No Known Drug Allergies Allergy Verified 01/07/17 13:59 - MEDICATIONS Home Medications: Ambulatory Orders Medication Instructions Recorded Confirmed Vitamin B Complex 1 cap PO DAILY 10/19/14 01/07/17 Ascorbic Acid [Vitamin C] 1,000 mg PO DAILY 01/17/16 01/07/17 Acyclovir 800 mg PO BID 01/07/17 01/07/17 Aspirin 81 mg PO DAILY 01/07/17 01/07/17 Filgrastim [Neupogen] 480 mcg SQ UD 01/07/17 01/08/17 Pravastatin [Pravachol] 80 mg PO DAILY 01/07/17 01/07/17 Rituximab/Hyaluronidase,Human See Protocol IV UD 01/07/17 01/08/17 [Rituxan Hycela 1,600 mg-26,800] Sulfamethox/Trimeth 800/160 1 tab PO DAILY 01/07/17 01/07/17 [Bactrim Ds] Tamsulosin [Flomax] 0.8 mg PO DAILY 01/07/17 01/08/17 Amox/Clav 875/125 [Augmentin] 1 each PO Q12H #14 tablet 01/09/17 Sulfamethox/Trimeth 800/160 1 tab PO DAILY #10 tablet 01/09/17 [Bactrim Ds] - PHYSICAL EXAM AT DISCHARGE General Appearance: positive: No acute distress, Alert Eyes Bilateral: positive: Normal inspection, PERRL, EOMI ENT: positive: ENT inspection nml, Pharynx nml, No signs of dehydration Neck: positive: Nml inspection, Thyroid nml, No JVD, Trachea midline Respiratory: positive: Chest non-tender, No respiratory distress, Breath sounds nml Cardiovascular: positive: Regular rate & rhythm, No murmur, No gallop Peripheral Pulses: positive: 2+ Abdomen: positive: Non-tender, No organomegaly, Nml bowel sounds, No distention Back: positive: Nml inspection Skin: positive: Color nml, No rash, Warm, Dry Extremities: positive: Non-tender, Full ROM, Nml appearance Neurologic/Psychiatric: positive: Oriented x3, CN's nml (2-12), Motor nml, Sensation nml, Mood/affect nml - LABS Result Diagrams: 01/09/17 05:20 01/09/17 05:20 Other Lab Results: Abnormal Lab Results 01/08/17 01/08/17 01/09/17 04:52 04:52 05:20 WBC 1.0 x10^3/uL L* x10^3/uL 2.3 x10^3/uL L x10^3/uL (4.8-10.8) (4.8-10.8) RBC 4.25 10^6/uL L 10^6/uL 4.36 10^6/uL L 10^6/uL (4.70-6.10) (4.70-6.10) Hgb 12.5 g/dL L g/dL 12.6 g/dL L g/dL (14.0-18.0) (14.0-18.0) Hct 35.9 % L % 36.7 % L % (42.0-52.0) (42.0-52.0) Plt Count 79 10^3/uL L 10^3/uL 73 10^3/uL L 10^3/uL (130-450) (130-450) Neut # 0.8 10^3/uL L 10^3/uL 1.2 10^3/uL L 10^3/uL (1.5-6.6) (1.5-6.6) Lymph # 0.2 10^3/uL L 10^3/uL 0.3 10^3/uL L 10^3/uL (1.5-3.5) (1.5-3.5) Sodium 133 mmol/L L mmol/L (135-145) Estimated GFR (MDRD) 60 L (>89) Glucose 112 mg/dL H mg/dL (70-100) Magnesium 1.5 mg/dL L mg/dL (1.7-2.8) Total Bilirubin 2.3 mg/dL H mg/dL (0.2-1.0) Total Protein 5.5 g/dL L g/dL (6.7-8.2) Globulin 1.9 g/dL L g/dL (2.1-4.2) 01/09/17 05:20 WBC RBC Hgb Hct Plt Count Neut # Lymph # Sodium 134 mmol/L L mmol/L (135-145) Estimated GFR (MDRD) 67 L (>89) Glucose Magnesium Total Bilirubin 2.4 mg/dL H mg/dL (0.2-1.0) Total Protein 5.6 g/dL L g/dL (6.7-8.2) Globulin 2.0 g/dL L g/dL (2.1-4.2) - DIAGNOSTIC IMAGING Diagnostic Imaging Results: Final report reviewed - FOLLOW UP Follow Up: Patient was instructed to see oncologist within 1 week of discharge. he was given instructions to continue on all home medications and given prescription for Augmentin. He was told to take tylenol for fever. He was instructed to return to the ER if symptoms worsened or if he had chest pain or shortness of breath - TIME SPENT Time Spent in Discharge (Minutes): 45 (planning and assessment of patient for discharge)"
== END 2017-01-09 11:20 | disposition home or self-care (01) | DRG 809 ==
LOC: ED 13:54 → MS2 16:41
PROVIDERS: ADMIT Nurse Practitioner Gerontology; ATTEND Nurse Practitioner
DX: D70.9 Neutropenia, unspecified (principal); C91.10 Chronic lymphocytic leukemia of B-cell type not having achieved remission; E87.1 Hypo-osmolality and hyponatremia; N40.1 Benign prostatic hyperplasia with lower urinary tract symptoms; R50.81 Fever presenting with conditions classified elsewhere; Z79.82 Long term (current) use of aspirin; N40.0 Benign prostatic hyperplasia without lower urinary tract symptoms; Z86.79 Personal history of other diseases of the circulatory system; E78.5 Hyperlipidemia, unspecified; D63.0 Anemia in neoplastic disease; I25.119 Atherosclerotic heart disease of native coronary artery with unspecified angina pectoris; I25.2 Old myocardial infarction; Z95.5 Presence of coronary angioplasty implant and graft; Z79.2 Long term (current) use of antibiotics; Z79.899 Other long term (current) drug therapy; Z87.891 Personal history of nicotine dependence
CPT/HCPCS: 36415; 71020; 80053; 81001; 81003; 83605; 83690; 83735; 85025; 87040; 87086; 96365; 99283; 99284; 99285

== ENCOUNTER 2017-01-11 12:49 | Outpatient (CLI) | payer MEDICARE ==
[2017-01-11 13:17] LABS: BASOPHILS % (AUTO) 0.5 %; HCT - HEMATOCRIT 35.8 % (42.0-52.0); HGB - HEMOGLOBIN 12.3 g/dL (14.0-18.0); MEAN CORPUSCULAR HEMOGLOBIN 28.9 pg (27.0-31.0); MEAN CORPUSCULAR HGB CONC 34.4 g/dL (32.0-36.0); MEAN CORPUSCULAR VOLUME 83.9 fL (80.0-94.0); MEAN PLATELET VOLUME 8.3 fL (7.4-11.4); MONOCYTES % (AUTO) 9.7 %; NEUTROPHILS % (AUTO) 80.8 %; RED BLOOD COUNT 4.27 10^6/uL (4.70-6.10); RED CELL DISTRIBUTION WIDTH 14.7 % (12.0-15.0); UNCORRECTED WHITE BLOOD COUNT 7.6 x10^3/uL; WHITE BLOOD COUNT 7.6 x10^3/uL (4.8-10.8)
[2017-01-11 15:25] LABS: BAND NEUTROPHILS % (MANUAL) 18 %; EOSINOPHILS % (MANUAL) 1 %; LYMPHOCYTES % (MANUAL) 2 %; NEUTROPHILS % (MANUAL) 66 %; TOTAL CELLS COUNTED 100
[2017-01-11 15:26] LABS: NP AUTO DIFFERENTIAL? YES
[2017-01-11 15:27] LABS: NP MAN DIFFERENTIAL? NO
== END 2017-01-11 12:50 | disposition home or self-care (01) ==
LOC: LAB 12:49
PROVIDERS: ATTEND Internal Medicine Medical Oncology
DX: C91.10 Chronic lymphocytic leukemia of B-cell type not having achieved remission (principal)
CPT/HCPCS: 36415; 85025

== ENCOUNTER 2017-02-08 11:24 | Outpatient (CLI) | payer MEDICARE ==
[2017-02-08 13:15] LABS: BASOPHILS % (AUTO) 0.3 %; EOSINOPHILS # (AUTO) 0.1 10^3/uL (0.0-0.7); EOSINOPHILS % (AUTO) 3.7 %; HCT - HEMATOCRIT 41.1 % (42.0-52.0); HGB - HEMOGLOBIN 13.8 g/dL (14.0-18.0); LYMPHOCYTES # (AUTO) 0.6 10^3/uL (1.5-3.5); LYMPHOCYTES % (AUTO) 30.6 %; MEAN CORPUSCULAR HGB CONC 33.7 g/dL (32.0-36.0); MEAN CORPUSCULAR VOLUME 86.2 fL (80.0-94.0); MEAN PLATELET VOLUME 7.9 fL (7.4-11.4); MONOCYTES # (AUTO) 0.4 10^3/uL (0.0-1.0); MONOCYTES % (AUTO) 21.2 %; NEUTROPHILS # (AUTO) 0.9 10^3/uL (1.5-6.6); NEUTROPHILS % (AUTO) 44.2 %; NUCLEATED RED BLOOD CELLS AUTO 0.3 /100WBC; RED BLOOD COUNT 4.76 10^6/uL (4.70-6.10); RED CELL DISTRIBUTION WIDTH 16.9 % (12.0-15.0); UNCORRECTED WHITE BLOOD COUNT 2.1 x10^3/uL; WHITE BLOOD COUNT 2.1 x10^3/uL (4.8-10.8)
== END 2017-02-08 11:25 | disposition home or self-care (01) ==
LOC: LAB 11:24
PROVIDERS: ATTEND Internal Medicine Medical Oncology
DX: C91.10 Chronic lymphocytic leukemia of B-cell type not having achieved remission (principal)
CPT/HCPCS: 36415; 85025

== ENCOUNTER 2017-02-10 07:42 | Outpatient (CLI) | payer MEDICARE ==
[2017-02-10] MEDS ORDERED: IOPAMIDOL-300 50 ML VIAL ONE (07:56)
[2017-02-10] MEDS ORDERED: IOPAMIDOL-300 100 ML VIAL ONE (07:56)
[2017-02-10] MEDS ORDERED: IOPAMIDOL-300 100 ML VIAL IVP ONE (10:40)
[2017-02-10] MEDS ORDERED: IOPAMIDOL-300 50 ML VIAL PO ONE (10:40)
--- NOTE | 2017-02-10 11:28 | CT Preliminary Report ---
Exam: CT ABDOMEN/PELVIS W/ IMPRESSION: 1. Mild diverticulosis. No evidence for diverticulitis. 2. Mild splenomegaly. 3. Enlarged prostate. 4. Tiny 3 mm lateral left lower lobe lung nodule. Consider one-year follow up if high-risk patient pe r Mario [employer] 2017 study guidelines. [facility] SITE ID: [id number]
--- NOTE | 2017-02-10 11:31 | CT Report ---
EXAM: CT ABDOMEN AND PELVIS EXAM DATE: 02/10/2017 10:40 AM. CLINICAL HISTORY: CLL ON RITUXAN WITH LLQ PAIN. COMPARISONS: None. TECHNIQUE: Routine helical CT imaging was performed through the abdomen and pelvis. IV contrast: 100 cc Isovue-300. Enteric contrast: Positive oral contrast. Reconstructions: Coronal and sagittal. In accordance with CT protocol optimization, one or more of the following dose reduction techniques w ere utilized for this exam: automated exposure control, adjustment of mA and/or KV based on patient s ize, or use of iterative reconstructive technique. FINDINGS: Lung Bases: 3 mm lateral left lower lobe lung nodule. Liver: Normal. No masses. Gallbladder/Bile Ducts: Unremarkable. Spleen: Mild splenomegaly. Spleen measures up to 12.5 cm, 434 cc. Pancreas: Normal. Adrenal Glands: Normal. Kidneys: Normal. No masses or hydronephrosis. Peritoneal Cavity/Bowel: Stool burden may be somewhat greater than average. No dilated bowel. Oral co ntrast reached cecum by time of exam. Mild diverticulosis is probably present in sigmoid colon. No in flammation evident. Rectosigmoid junction is collapsed, presumably from peristalsis. No adjacent soft tissue stranding or bulky adenopathy. Prior appendectomy. Small fat-containing right inguinal hernia without inflammation or associated bowel. Pelvic Organs: Enlarged prostate. Bladder is partially distended and unremarkable. Vasculature: No aneurysms or other significant abnormality. Atherosclerotic calcifications. Bones: No significant abnormality. Other: None. IMPRESSION: 1. Mild diverticulosis. No evidence for diverticulitis. 2. Mild splenomegaly. 3. Enlarged prostate. 4. Tiny 3 mm lateral left lower lobe lung nodule. Consider one-year follow up if high-risk patient pe r Mario Society 2017 study guidelines. [facility] Referring Provider Line: [phone] SITE ID: [id number]
== END 2017-02-10 07:43 | disposition home or self-care (01) ==
LOC: LAB 07:42
PROVIDERS: ATTEND Internal Medicine
DX: K57.92 Diverticulitis of intestine, part unspecified, without perforation or abscess without bleeding (principal); R16.1 Splenomegaly, not elsewhere classified; R91.1 Solitary pulmonary nodule; N40.0 Benign prostatic hyperplasia without lower urinary tract symptoms
CPT/HCPCS: 36415; 74177; 82565; Q9967

== ENCOUNTER 2017-02-15 12:27 | Outpatient (CLI) | payer MEDICARE ==
[2017-02-15 12:51] LABS: BASOPHILS % (AUTO) 0.3 %; EOSINOPHILS % (AUTO) 1.6 %; HCT - HEMATOCRIT 41.6 % (42.0-52.0); HGB - HEMOGLOBIN 14.1 g/dL (14.0-18.0); LYMPHOCYTES # (AUTO) 0.9 10^3/uL (1.5-3.5); MEAN CORPUSCULAR VOLUME 85.4 fL (80.0-94.0); MONOCYTES # (AUTO) 0.7 10^3/uL (0.0-1.0); MONOCYTES % (AUTO) 44.6 %; NEUTROPHILS % (AUTO) 1.5 %; NUCLEATED RED BLOOD CELLS AUTO 0.9 /100WBC; RED BLOOD COUNT 4.87 10^6/uL (4.70-6.10); RED CELL DISTRIBUTION WIDTH 15.7 % (12.0-15.0); UNCORRECTED WHITE BLOOD COUNT 1.7 x10^3/uL
[2017-02-15 13:20] LABS: WBC MORPHOLOGY (MULTIPLE) 1+ REACTIVE LYMPHS (NORMAL)
[2017-02-15 13:58] LABS: WHITE BLOOD COUNT 1.7 x10^3/uL (4.8-10.8)
== END 2017-02-15 12:28 | disposition home or self-care (01) ==
LOC: LAB 12:27
PROVIDERS: ATTEND Internal Medicine Medical Oncology
DX: C91.10 Chronic lymphocytic leukemia of B-cell type not having achieved remission (principal)
CPT/HCPCS: 36415; 85025

== ENCOUNTER 2017-02-19 10:30 | Outpatient (CLI) | payer MEDICARE ==
[2017-02-19 10:44] LABS: BASOPHILS % (AUTO) 0.2 %; EOSINOPHILS % (AUTO) 0.3 %; HCT - HEMATOCRIT 42.7 % (42.0-52.0); LYMPHOCYTES % (AUTO) 3.4 %; MEAN CORPUSCULAR HEMOGLOBIN 28.2 pg (27.0-31.0); MEAN CORPUSCULAR HGB CONC 32.8 g/dL (32.0-36.0); MEAN PLATELET VOLUME 7.6 fL (7.4-11.4); MONOCYTES % (AUTO) 4.6 %; NEUTROPHILS % (AUTO) 91.5 %; RED BLOOD COUNT 4.97 10^6/uL (4.70-6.10); RED CELL DISTRIBUTION WIDTH 15.9 % (12.0-15.0); UNCORRECTED WHITE BLOOD COUNT 47.2 x10^3/uL
[2017-02-19 11:25] LABS: BAND NEUTROPHILS % (MANUAL) 18 %; LYMPHOCYTES % (MANUAL) 3 %; NEUTROPHILS % (MANUAL) 67 %; PLATELET MORPHOLOGY NORMAL APPEARANCE (NORMAL); TOTAL CELLS COUNTED 100
[2017-02-19 11:26] LABS: NP AUTO DIFFERENTIAL? YES; NP MAN DIFFERENTIAL? NO; PLATELET ESTIMATE, MANUAL NORMAL (130-450,000) (NORMAL)
[2017-02-19 11:33] LABS: WHITE BLOOD COUNT 47.2 x10^3/uL (4.8-10.8)
== END 2017-02-19 10:31 | disposition home or self-care (01) ==
LOC: LAB 10:30
PROVIDERS: ATTEND Internal Medicine Medical Oncology
DX: C91.10 Chronic lymphocytic leukemia of B-cell type not having achieved remission (principal)
CPT/HCPCS: 36415; 85025

== ENCOUNTER 2017-03-20 11:07 | Outpatient (CLI) | payer MEDICARE ==
[2017-03-20 11:29] LABS: BASOPHILS % (AUTO) 0.2 %; EOSINOPHILS # (AUTO) 0.1 10^3/uL (0.0-0.7); EOSINOPHILS % (AUTO) 1.7 %; HCT - HEMATOCRIT 42.1 % (42.0-52.0); HGB - HEMOGLOBIN 14.3 g/dL (14.0-18.0); LYMPHOCYTES # (AUTO) 0.9 10^3/uL (1.5-3.5); LYMPHOCYTES % (AUTO) 17.3 %; MEAN CORPUSCULAR HEMOGLOBIN 29.7 pg (27.0-31.0); MEAN CORPUSCULAR VOLUME 87.4 fL (80.0-94.0); MEAN PLATELET VOLUME 7.8 fL (7.4-11.4); MONOCYTES # (AUTO) 0.4 10^3/uL (0.0-1.0); MONOCYTES % (AUTO) 8.7 %; NEUTROPHILS # (AUTO) 3.5 10^3/uL (1.5-6.6); NEUTROPHILS % (AUTO) 72.1 %; RED BLOOD COUNT 4.82 10^6/uL (4.70-6.10); RED CELL DISTRIBUTION WIDTH 17.1 % (12.0-15.0); UNCORRECTED WHITE BLOOD COUNT 4.9 x10^3/uL; WHITE BLOOD COUNT 4.9 x10^3/uL (4.8-10.8)
== END 2017-03-20 11:08 | disposition home or self-care (01) ==
LOC: LAB 11:07
PROVIDERS: ATTEND Internal Medicine Medical Oncology
DX: C91.10 Chronic lymphocytic leukemia of B-cell type not having achieved remission (principal)
CPT/HCPCS: 36415; 85025

== ENCOUNTER 2017-04-19 15:14 | Outpatient (CLI) | payer MEDICARE ==
[2017-04-19 15:33] LABS: BASOPHILS % (AUTO) 0.1 %; EOSINOPHILS % (AUTO) 0.8 %; HCT - HEMATOCRIT 44.1 % (42.0-52.0); HGB - HEMOGLOBIN 15.2 g/dL (14.0-18.0); LYMPHOCYTES # (AUTO) 0.9 10^3/uL (1.5-3.5); LYMPHOCYTES % (AUTO) 16.6 %; MEAN CORPUSCULAR HEMOGLOBIN 29.6 pg (27.0-31.0); MEAN CORPUSCULAR HGB CONC 34.4 g/dL (32.0-36.0); MEAN CORPUSCULAR VOLUME 85.9 fL (80.0-94.0); MEAN PLATELET VOLUME 8.2 fL (7.4-11.4); MONOCYTES # (AUTO) 0.4 10^3/uL (0.0-1.0); MONOCYTES % (AUTO) 6.8 %; NEUTROPHILS # (AUTO) 4.2 10^3/uL (1.5-6.6); NEUTROPHILS % (AUTO) 75.7 %; RED BLOOD COUNT 5.13 10^6/uL (4.70-6.10); RED CELL DISTRIBUTION WIDTH 14.8 % (12.0-15.0); UNCORRECTED WHITE BLOOD COUNT 5.5 x10^3/uL; WHITE BLOOD COUNT 5.5 x10^3/uL (4.8-10.8)
== END 2017-04-19 15:15 | disposition home or self-care (01) ==
LOC: LAB 15:14
PROVIDERS: ATTEND Internal Medicine Medical Oncology
DX: C91.10 Chronic lymphocytic leukemia of B-cell type not having achieved remission (principal)
CPT/HCPCS: 36415; 85025

== ENCOUNTER 2017-06-14 11:37 | Outpatient (CLI) | payer MEDICARE ==
[2017-06-14 11:52] LABS: BASOPHILS % (AUTO) 0.2 %; EOSINOPHILS # (AUTO) 0.2 10^3/uL (0.0-0.7); EOSINOPHILS % (AUTO) 5.3 %; HGB - HEMOGLOBIN 15.9 g/dL (14.0-18.0); LYMPHOCYTES # (AUTO) 0.8 10^3/uL (1.5-3.5); LYMPHOCYTES % (AUTO) 25.1 %; MEAN CORPUSCULAR HEMOGLOBIN 29.6 pg (27.0-31.0); MEAN CORPUSCULAR HGB CONC 34.6 g/dL (32.0-36.0); MEAN CORPUSCULAR VOLUME 85.4 fL (80.0-94.0); MEAN PLATELET VOLUME 7.5 fL (7.4-11.4); MONOCYTES # (AUTO) 0.6 10^3/uL (0.0-1.0); MONOCYTES % (AUTO) 19.1 %; NEUTROPHILS # (AUTO) 1.6 10^3/uL (1.5-6.6); NEUTROPHILS % (AUTO) 50.3 %; PLT - PLATELET COUNT 179 10^3/uL (130-450); RED BLOOD COUNT 5.38 10^6/uL (4.70-6.10); RED CELL DISTRIBUTION WIDTH 14.1 % (12.0-15.0); WHITE BLOOD COUNT 3.3 x10^3/uL (4.8-10.8)
== END 2017-06-14 11:38 | disposition home or self-care (01) ==
LOC: LAB 11:37
PROVIDERS: ATTEND Internal Medicine Medical Oncology
DX: C91.10 Chronic lymphocytic leukemia of B-cell type not having achieved remission (principal)
CPT/HCPCS: 36415; 85025

== ENCOUNTER 2017-07-15 15:59 | Emergency (ER) | payer MEDICARE ==
[2017-07-15 16:32] LABS: BASOPHILS % (AUTO) 0.3 %; EOSINOPHILS % (AUTO) 0.1 %; HGB - HEMOGLOBIN 14.6 g/dL (14.0-18.0); LYMPHOCYTES # (AUTO) 0.4 10^3/uL (1.5-3.5); LYMPHOCYTES % (AUTO) 4.9 %; MEAN CORPUSCULAR HEMOGLOBIN 28.4 pg (27.0-31.0); MEAN CORPUSCULAR HGB CONC 34.1 g/dL (32.0-36.0); MEAN CORPUSCULAR VOLUME 83.3 fL (80.0-94.0); MEAN PLATELET VOLUME 7.6 fL (7.4-11.4); MONOCYTES # (AUTO) 0.6 10^3/uL (0.0-1.0); MONOCYTES % (AUTO) 6.8 %; NEUTROPHILS % (AUTO) 87.9 %; PLT - PLATELET COUNT 131 10^3/uL (130-450); RED BLOOD COUNT 5.13 10^6/uL (4.70-6.10); WHITE BLOOD COUNT 9.1 x10^3/uL (4.8-10.8)
--- NOTE | 2017-07-15 16:34 | ED Physician Documentation ---
History of Present Illness - Stated complaint Stated Complaint: SOA,COUGH,FEVER - Chief complaint Chief Complaint: Resp - History obtained from History obtained from: Patient - History of Present Illness Timing: How many weeks ago (1) Pain level max: 0 Pain level now: 0 Improved by: rest Worsened by: walking - Additonal information Additional information: States was visiting [place] and given amoxicillin. States not improved yet. Subjective fevers. Productive cough. No vomiting. History of CLL, last chemotherapy 5 months ago. Review of Systems Ten Systems: 10 systems reviewed and negative Constitutional: reports: Fever. denies: Chills Nose: reports: Rhinorrhea / runny nose, Congestion Cardiac: denies: Chest pain / pressure Respiratory: reports: Cough. denies: Wheezing GI: denies: Abdominal Pain, Nausea, Vomiting, Diarrhea : denies: Dysuria Skin: denies: Rash Musculoskeletal: denies: Neck pain, Back pain Neurologic: denies: Headache PD PAST MEDICAL HISTORY - Past Medical History Cardiovascular: Angina Respiratory: None Neuro: None Endocrine/Autoimmune: None GI: None : None HEENT: None Psych: None Musculoskeletal: None Derm: None Other Past Medical History: CLL - Past Surgical History General: Appendectomy Cardiovascular: Coronary stent - Present Medications Home Medications: Ambulatory Orders Medication Instructions Recorded Confirmed Vitamin B Complex 1 cap PO DAILY 10/19/14 01/07/17 Ascorbic Acid [Vitamin C] 1,000 mg PO DAILY 01/17/16 01/07/17 Acyclovir 800 mg PO BID 01/07/17 01/07/17 Aspirin 81 mg PO DAILY 01/07/17 01/07/17 Filgrastim [Neupogen] 480 mcg SQ 01/07/17 01/08/17 Pravastatin [Pravachol] 80 mg PO DAILY 01/07/17 01/07/17 Rituximab/Hyaluronidase,Human See Protocol IV UD 01/07/17 01/08/17 [Rituxan Hycela 1,600 mg-26,800] Sulfamethox/Trimeth 800/160 1 tab PO DAILY 01/07/17 01/07/17 [Bactrim Ds] Tamsulosin [Flomax] 0.8 mg PO DAILY 01/07/17 01/08/17 Amox/Clav 875/125 [Augmentin] 1 each PO Q12H #14 tablet 01/09/17 Sulfamethox/Trimeth 800/160 1 tab PO DAILY #10 tablet 01/09/17 [Bactrim Ds] Albuterol Sulf [Ventolin Hfa 1 - 2 puffs INH Q4HR PRN #1 inhaler 07/15/17 Inhaler] Benzonatate [Tessalon Perle] 100 - 200 mg PO TID PRN #30 capsule 07/15/17 predniSONE [Prednisone] 20 mg PO DAILY #5 tablet 07/15/17 - Allergies Allergies/Adverse Reactions: Allergies Allergy/AdvReac Type Severity Reaction Status Date / Time morphine Allergy Dizziness Verified 07/15/17 16:05 - Social History Does the pt smoke?: No Smoking Status: Never smoker Does the pt drink ETOH?: No Does the pt have substance abuse?: Yes - Immunizations Immunizations are current?: Yes - POLST Patient has POLST: Yes POLST Status: Full Code (pt state he want to be full code) PD ED PE NORMAL - Vitals Vital signs reviewed: Yes - General General: Alert and oriented X 3, No acute distress, Well developed/nourished - HEENT HEENT: PERRL, Ears normal, Moist mucous membranes, Pharynx benign - Neck Neck: Supple, no meningeal sign - Cardiac Cardiac: RRR, Strong equal pulses - Respiratory Respiratory: No respiratory distress, Other (wheezing B) - Abdomen Abdomen: Soft, Non tender, Non distended - Derm Derm: Warm and dry, No rash - Extremities Extremities: No edema, No calf tenderness / cord - Neuro Neuro: Alert and oriented X 3 - Psych Psych: Normal mood, Normal affect Results - Vitals Vitals: Vital Signs - 24 hr 07/15/17 07/15/17 07/15/17 16:02 18:13 18:35 Temperature 37.3 C Heart Rate 86 84 84 Respiratory 18 18 18 Rate Blood Pressure 131/64 H 136/74 H O2 Saturation 94 99 Oxygen O2 Source Room air - Labs Labs: Laboratory Tests 07/15/17 07/15/17 07/15/17 16:09 16:27 16:27 WBC 9.1 RBC 5.13 Hgb 14.6 Hct 42.7 MCV 83.3 MCH 28.4 MCHC 34.1 RDW 14.0 Plt Count 131 MPV 7.6 Neut # 8.0 H Lymph # 0.4 L [place] # 0.6 Eos # 0.0 Baso # 0.0 Absolute Nucleated RBC 0.00 Nucleated RBC % 0.0 Sodium 132 L Potassium 4.3 Chloride 101 Carbon Dioxide 22 Anion Gap 9.0 BUN 12 Creatinine 0.8 Estimated GFR (MDRD) 96 Glucose 107 H Calcium 8.5 Total Bilirubin 0.7 AST 24 ALT 21 Alkaline Phosphatase 63 Total Protein 6.1 L Albumin 4.2 Globulin 1.9 L Albumin/Globulin Ratio 2.2 Lipase 15 L Influenza A (Rapid) Negative Influenza B (Rapid) Negative Influenza Types A,B Ag - - Rads (name of study) cxr Radiology: Prelim report reviewed, EMP read contemporaneously, See rad report ( Bilateral central bronchial wall thickening could be compatible with reactive airway disease or bronchitis. No evidence for superimposed pneumonia.) PD MEDICAL DECISION MAKING - ED course Complexity details: reviewed results, re-evaluated patient, considered differential, d/w patient, d/w family ED course: Patient is a 66-year-old male who has a history of CLL, last chemotherapy approximately 5-6 months ago. No neutropenia today. He is on amoxicillin already at home. Does not appear to have pneumonia on chest x-ray. Feels better after nebulizer treatment. Wheezing decreased. Will prescribe an inhaler for home as well as a short course of steroids to help with the inflammation in his lungs. He currently does not want to finish his amoxicillin , encouraged him to finish the course of antibiotics as previously prescribed. Patient is well-appearing, nontoxic. No hypoxia. No respiratory distress. Patient counseled regarding signs and symptoms for which I believe and urgent re -evaluation would be necessary. Patient with good understanding of and agreement to plan and is comfortable going home at this time This document was made in part using voice recognition software. While efforts are made to proofread this document, sound alike and grammatical errors may occur. Departure - Departure Disposition: 01 Home, Self Care Clinical Impression: Viral syndrome Condition: Good Instructions: ED Viral Syndrome Follow-Up: MADISON CONDON MD [Primary Care Provider] - Within 1 week Prescriptions: Albuterol Sulf [Ventolin Hfa Inhaler] 1 - 2 puffs INH Q4HR PRN #1 inhaler PRN Reason: Shortness Of Air/Wheezing Benzonatate [Tessalon Perle] 100 - 200 mg PO TID PRN #30 capsule PRN Reason: Cough predniSONE [Prednisone] 20 mg PO DAILY #5 tablet Comments: Return if you worsen. Please continue your antibiotics as prescribed at home. This should improve over the next few days. Follow-up closely with your doctor for repeat evaluation. Discharge Date/Time: 07/15/17 18:35
[2017-07-15 16:45] LABS: ALBUMIN 4.2 g/dL (3.2-5.5); ALBUMIN/GLOBULIN RATIO 2.2 (1.0-2.2); BILIRUBIN,TOTAL 0.7 mg/dL (0.2-1.0); CALCIUM 8.5 mg/dL (8.5-10.3); CREATININE 0.8 mg/dL (0.6-1.2); TOTAL PROTEIN 6.1 g/dL (6.7-8.2)
--- NOTE | 2017-07-15 17:16 | XRAY Preliminary Report ---
Exam: XR CHEST 2 VIEW X-RAY IMPRESSION: 1. Bilateral central bronchial wall thickening could be compatible with reactive airways disease or b ronchitis. No evidence for superimposed pneumonia. [facility] SITE ID: [id number]
--- NOTE | 2017-07-15 17:17 | XRAY Report ---
EXAM: CHEST RADIOGRAPHY EXAM DATE: 07/15/2017 04:54 PM. CLINICAL HISTORY: Cough and shortness of breath COMPARISON: 01/07/2017. TECHNIQUE: 2 views. FINDINGS: Lungs/Pleura: Bilateral central bronchial wall thickening could be compatible with reactive airways d isease or bronchitis. No focal superimposed airspace consolidation seen worrisome for pneumonia. No p leural effusion or pneumothorax. Mediastinum: Heart and mediastinal contours are unremarkable. Other: None. IMPRESSION: 1. Bilateral central bronchial wall thickening could be compatible with reactive airways disease or b ronchitis. No evidence for superimposed pneumonia. [facility] Referring Provider Line: [phone] SITE ID: [id number]
[2017-07-15] MEDS ORDERED: IPRATROPIUM/ALBUTEROL 3 ML NEB INH STA (17:51)
[2017-07-15] MEDS ORDERED: predniSONE 20 MG TABLET PO STA (17:51)
[2017-07-15 18:49] VITALS: BP 136/74
== END 2017-07-15 18:35 | disposition home or self-care (01) ==
LOC: ED 15:59
DX: B34.9 Viral infection, unspecified (principal); R06.2 Wheezing; Z85.6 Personal history of leukemia; Z79.82 Long term (current) use of aspirin
CPT/HCPCS: 36415; 71046; 80053; 83690; 85025; 87275; 87276; 94640; 94664; 99283; 99284; J7512

== ENCOUNTER 2017-07-24 11:11 | Outpatient (CLI) | payer MEDICARE ==
--- NOTE | 2017-07-24 17:26 | XRAY Report ---
TWO VIEW CHEST: 07/24/2017 CLINICAL INDICATION: Shortness of breath, cough. FINDINGS: Frontal and lateral views of the chest are compared to previous films of 07/15/2017. The cardiac silhouette is within normal limits. The lungs are clear. No effusion or pneumothorax is present. IMPRESSION: NORMAL CHEST. TD: 07/24/2017 17:25
== END 2017-07-24 11:12 | disposition home or self-care (01) ==
LOC: DI 11:11
PROVIDERS: ATTEND Internal Medicine
DX: R05 Cough (principal); R06.02 Shortness of breath
CPT/HCPCS: 71046

== ENCOUNTER 2017-09-18 08:30 | Outpatient (CLI) | payer MEDICARE ==
[2017-09-18 08:54] LABS: BASOPHILS % (AUTO) 0.3 %; EOSINOPHILS # (AUTO) 0.1 10^3/uL (0.0-0.7); EOSINOPHILS % (AUTO) 1.4 %; HGB - HEMOGLOBIN 15.6 g/dL (14.0-18.0); LYMPHOCYTES # (AUTO) 1.1 10^3/uL (1.5-3.5); LYMPHOCYTES % (AUTO) 22.1 %; MEAN CORPUSCULAR HEMOGLOBIN 29.4 pg (27.0-31.0); MEAN CORPUSCULAR HGB CONC 33.9 g/dL (32.0-36.0); MEAN CORPUSCULAR VOLUME 86.5 fL (80.0-94.0); MEAN PLATELET VOLUME 8.3 fL (7.4-11.4); MONOCYTES # (AUTO) 0.5 10^3/uL (0.0-1.0); MONOCYTES % (AUTO) 10.8 %; NEUTROPHILS # (AUTO) 3.2 10^3/uL (1.5-6.6); NEUTROPHILS % (AUTO) 65.4 %; PLT - PLATELET COUNT 164 10^3/uL (130-450); RED CELL DISTRIBUTION WIDTH 16.4 % (12.0-15.0)
== END 2017-09-18 08:31 | disposition home or self-care (01) ==
LOC: LAB 08:30
PROVIDERS: ATTEND Internal Medicine Medical Oncology
DX: C91.10 Chronic lymphocytic leukemia of B-cell type not having achieved remission (principal)
CPT/HCPCS: 36415; 85025

== ENCOUNTER 2018-03-13 08:03 | Outpatient (CLI) | payer MEDICARE ==
--- NOTE | 2018-03-13 13:31 | Ultrasound Report ---
Reason: CHRONIC DIARRHEA Procedure Date: 03/13/2018 Accession Number: [id number] / [id number] Procedure: US - Abdomen Complete CPT Code: FULL RESULT: EXAM: ABDOMEN ULTRASOUND EXAM DATE: 03/13/2018 09:43 AM. CLINICAL HISTORY: CHRONIC DIARRHEA. COMPARISON: ABDOMEN/PELVIS W/ 02/10/2017 10:25 AM. TECHNIQUE: Real-time scanning was performed with static images obtained. FINDINGS: Liver: Normal in size and echotexture. 15.5 cm. Main portal vein flow: Hepatopetal. Gallbladder: There is a 5 mm nondependent nonshadowing echogenic structure associated with the gallbladder wall consistent with gallbladder polyp. No stone, wall thickening, or pericholecystic fluid. No sonographic Pavon sign. Biliary System: Common bile duct measures 4 mm. No intrahepatic or extrahepatic ductal dilatation. Pancreas: Visualized portion is unremarkable. Kidneys: Right: 10.5 cm longitudinally. Normal. No contour-deforming mass, stones, or hydronephrosis. Left: 11 cm longitudinally. Normal. No contour-deforming mass, stones, or hydronephrosis. Spleen: 12 cm. Normal in size and echotexture. Aorta and Inferior Vena Cava: Unremarkable. Other: None. IMPRESSION: 1. Probable 5 mm gallbladder wall polyp. 2. Otherwise normal abdominal ultrasound. RADIA
== END 2018-03-13 08:04 | disposition home or self-care (01) ==
LOC: DI 08:03
PROVIDERS: ATTEND Physician Assistant
DX: R19.7 Diarrhea, unspecified (principal)
CPT/HCPCS: 76700

== ENCOUNTER 2018-05-07 07:28 | Emergency (ER) | payer MEDICARE ==
[2018-05-07 07:55] LABS: BILIRUBIN,URINE NEGATIVE (NEGATIVE); GLUCOSE, URINE (UA) NEGATIVE (NEGATIVE); KETONES,URINE (UA) 15 mg/dL (NEGATIVE); LEUKOCYTE ESTERASE, URINE MODERATE (NEGATIVE); NITRITE,URINE POSITIVE (NEGATIVE); OCCULT BLOOD,URINE LARGE (NEGATIVE); PROTEIN,URINE 100 mg/dL (NEGATIVE); UROBILINOGEN,URINE 1 (NORMAL) E.U./dL (NORMAL)
[2018-05-07 07:56] LABS: CLARITY,URINE CLOUDY (CLEAR)
[2018-05-07 08:14] LABS: BACTERIA,URINE Moderate /HPF (None Seen); SQUAMOUS EPITHELIAL CELL,UR NONE SEEN (<= Few)
[2018-05-07] MEDS ORDERED: LIDOCAINE 1% 2 ML VIAL SUBQ ONE (08:15)
[2018-05-07] MEDS ORDERED: cefTRIAXone 1 GM VIAL IM STA (08:15)
--- NOTE | 2018-05-07 08:29 | ED Physician Documentation ---
History of Present Illness - Stated complaint Stated Complaint: FEVER/MALE - Chief complaint Chief Complaint: General - Additonal information Additional information: hx from pt 67 male hx CLL in remission not on immune suppressing meds now to ED with several days of dysuria low grade fever myalgias no cough no NVD no abd pain no flank pain mild pain no rectal pain has BPH Review of Systems Constitutional: reports: Fever, Myalgias Cardiac: denies: Chest pain / pressure Respiratory: denies: Dyspnea, Cough GI: denies: Abdominal Pain, Nausea : reports: Dysuria Musculoskeletal: denies: Back pain Endocrine: denies: Easy bruising / bleeding Immunocompromised: denies: Immunocompromised PD PAST MEDICAL HISTORY - Past Medical History Cardiovascular: Angina Respiratory: None Endocrine/Autoimmune: None GI: None : None HEENT: None Psych: None Musculoskeletal: None Derm: None Other Past Medical History: CLL - Past Surgical History Past Surgical History: Yes General: Appendectomy Cardiovascular: Coronary stent HEENT: Tonsil/Adenoidectomy - Present Medications Home Medications: Ambulatory Orders Medication Instructions Recorded Confirmed Pravastatin [Pravachol] 80 mg PO DAILY 01/07/17 05/07/18 Tamsulosin [Flomax] 0.8 mg PO DAILY 01/07/17 05/07/18 - Allergies Allergies/Adverse Reactions: Allergies Allergy/AdvReac Type Severity Reaction Status Date / Time morphine Allergy Dizziness Verified 05/07/18 08:13 - Social History Does the pt smoke?: No Smoking Status: Never smoker Does the pt drink ETOH?: No Does the pt have substance abuse?: Yes Substance Use and Type: Marijuana - Immunizations Immunizations are current?: Yes - POLST Patient has POLST: Yes POLST Status: Full Code (pt state he want to be full code) PD ED PE NORMAL - Vitals Vital signs reviewed: Yes - Cardiac Cardiac: RRR - Respiratory Respiratory: No respiratory distress - Abdomen Abdomen: Soft, Non tender - Male Male : Derrickman Helper present (Fiona VELEZ), Other (testes desc julien no masses not swollen non tender) - Back Back: No CVA TTP - Derm Derm: Normal color - Neuro Neuro: Alert and oriented X 3 Results - Vitals Vitals: Vital Signs - 24 hr 05/07/18 07:37 Temperature 36.7 C Heart Rate 94 Respiratory 18 Rate Blood Pressure 118/70 O2 Saturation 97 Oxygen O2 Source Room air - Labs Labs: Laboratory Tests 05/07/18 05/07/18 05/07/18 07:43 08:19 08:19 WBC 11.9 H RBC 4.88 Hgb 14.5 Hct 41.7 L MCV 85.6 MCH 29.7 MCHC 34.7 RDW 14.4 Plt Count 111 L MPV 8.7 Neut # (Auto) 10.1 H Lymph # (Auto) 0.9 L [place] # (Auto) 0.8 Eos # (Auto) 0.0 Baso # (Auto) 0.0 Absolute Nucleated RBC 0.01 Nucleated RBC % 0.1 Sodium 135 Potassium 3.9 Chloride 102 Carbon Dioxide 25 Anion Gap 8.0 BUN 18 Creatinine 1.1 Estimated GFR (MDRD) 66 L Glucose 123 H Lactic Acid Calcium 8.6 Urine Color DARK YELLOW Urine Clarity CLOUDY Urine pH 6.0 Ur Specific [place] 1.025 Urine Protein 100 H Urine Glucose (UA) NEGATIVE Urine Ketones 15 H Urine Occult Blood LARGE H Urine Nitrite POSITIVE H Urine Bilirubin NEGATIVE Urine Urobilinogen 1 (NORMAL) Ur Leukocyte Esterase MODERATE H Urine RBC 11-25 H Urine WBC >25 H Ur Squamous Epith Cells NONE SEEN Urine Bacteria Moderate H Ur Microscopic Review INDICATED Urine Culture Comments INDICATED 05/07/18 08:19 WBC RBC Hgb Hct MCV MCH MCHC RDW Plt Count MPV Neut # (Auto) Lymph # (Auto) [place] # (Auto) Eos # (Auto) Baso # (Auto) Absolute Nucleated RBC Nucleated RBC % Sodium Potassium Chloride Carbon Dioxide Anion Gap BUN Creatinine Estimated GFR (MDRD) Glucose Lactic Acid 0.7 Calcium Urine Color Urine Clarity Urine pH Ur Specific [place] Urine Protein Urine Glucose (UA) Urine Ketones Urine Occult Blood Urine Nitrite Urine Bilirubin Urine Urobilinogen Ur Leukocyte Esterase Urine RBC Urine WBC Ur Squamous Epith Cells Urine Bacteria Ur Microscopic Review Urine Culture Comments PD MEDICAL DECISION MAKING - ED course ED course: pt with BPH but no rectal pain to suggest prostatitis and cipro/levaquin have numerous black box warning now so will tx with rocpehin IM in ED (pt decline IV) and keflex rx to go and close fup noted small blood on urine - pt has no flank pain to suggest kidney stone Departure - Departure Disposition: 01 Home, Self Care Clinical Impression: UTI (urinary tract infection) Qualifiers: Urinary tract infection type: site unspecified Hematuria presence: with hematuria Qualified Code(s): N39.0 - Urinary tract infection, site not specified Condition: Good Instructions: ED UTI Cystitis Male Follow-Up: MADISON CONDON MD [Primary Care Provider] - Comments: You do have a urine infection. A urine culture will run to identify the type of bacteria causing the infection and to test different antibiotics ability to treat that infection. If the culture report indicates you need to change antibiotics, the ER staff will call you. Also some blood was noted in your urine - this is not uncommon with infections - but please follow up with your PMD after completing antibiotics to be sure the blood has cleared. Return if worse (higher fever, vomiting, kidney pains, cannot urinate)
[2018-05-07 08:32] LABS: BASOPHILS % (AUTO) 0.2 %; EOSINOPHILS % (AUTO) 0.4 %; HGB - HEMOGLOBIN 14.5 g/dL (14.0-18.0); LYMPHOCYTES # (AUTO) 0.9 10^3/uL (1.5-3.5); LYMPHOCYTES % (AUTO) 7.8 %; MEAN CORPUSCULAR HEMOGLOBIN 29.7 pg (27.0-31.0); MEAN CORPUSCULAR HGB CONC 34.7 g/dL (32.0-36.0); MEAN CORPUSCULAR VOLUME 85.6 fL (80.0-94.0); MEAN PLATELET VOLUME 8.7 fL (7.4-11.4); MONOCYTES # (AUTO) 0.8 10^3/uL (0.0-1.0); MONOCYTES % (AUTO) 6.4 %; NEUTROPHILS # (AUTO) 10.1 10^3/uL (1.5-6.6); NEUTROPHILS % (AUTO) 85.2 %; PLT - PLATELET COUNT 111 10^3/uL (130-450); RED BLOOD COUNT 4.88 10^6/uL (4.70-6.10); RED CELL DISTRIBUTION WIDTH 14.4 % (12.0-15.0); WHITE BLOOD COUNT 11.9 x10^3/uL (4.8-10.8)
[2018-05-07 08:37] LABS: CALCIUM 8.6 mg/dL (8.5-10.3); CREATININE 1.1 mg/dL (0.6-1.2)
[2018-05-07 09:22] VITALS: BP 125/78
== END 2018-05-07 09:31 | disposition home or self-care (01) ==
LOC: ED 07:28
DX: N39.0 Urinary tract infection, site not specified (principal); R31.9 Hematuria, unspecified; N40.0 Benign prostatic hyperplasia without lower urinary tract symptoms; Z85.6 Personal history of leukemia; Z95.5 Presence of coronary angioplasty implant and graft
CPT/HCPCS: 36415; 80048; 81001; 81003; 83605; 85025; 87040; 87086; 87181; 96372; 99283

== ENCOUNTER 2019-03-02 11:26 | Outpatient (CLI) | payer MEDICARE ==
[2019-03-02 11:55] LABS: BASOPHILS # (AUTO) 0.1 10^3/uL (0.0-0.1); BASOPHILS % (AUTO) 0.3 %; EOSINOPHILS # (AUTO) 0.1 10^3/uL (0.0-0.7); EOSINOPHILS % (AUTO) 0.5 %; HGB - HEMOGLOBIN 15.7 g/dL (14.0-18.0); LYMPHOCYTES # (AUTO) 7.6 10^3/uL (1.5-3.5); LYMPHOCYTES % (AUTO) 49.2 %; MEAN CORPUSCULAR HEMOGLOBIN 28.9 pg (27.0-31.0); MEAN CORPUSCULAR HGB CONC 33.2 g/dL (32.0-36.0); MEAN CORPUSCULAR VOLUME 86.9 fL (80.0-94.0); MEAN PLATELET VOLUME 9.7 fL (7.4-11.4); MONOCYTES # (AUTO) 2.7 10^3/uL (0.0-1.0); MONOCYTES % (AUTO) 17.4 %; NEUTROPHILS # (AUTO) 4.9 10^3/uL (1.5-6.6); NEUTROPHILS % (AUTO) 31.8 %; PLT - PLATELET COUNT 108 10^3/uL (130-450); RED BLOOD COUNT 5.44 10^6/uL (4.70-6.10); RED CELL DISTRIBUTION WIDTH 13.7 % (12.0-15.0); WHITE BLOOD COUNT 15.5 x10^3/uL (4.8-10.8)
== END 2019-03-02 11:27 | disposition home or self-care (01) ==
LOC: LAB 11:26
PROVIDERS: ATTEND Internal Medicine Medical Oncology
DX: C91.10 Chronic lymphocytic leukemia of B-cell type not having achieved remission (principal)
CPT/HCPCS: 36415; 85025

== ENCOUNTER 2020-09-21 07:56 | Outpatient (CLI) | payer MEDICARE ==
[2020-09-21 08:32] LABS: HCT - HEMATOCRIT 48.8 % (42.0-52.0); HGB - HEMOGLOBIN 16.2 g/dL (14.0-18.0); LYMPHOCYTES # (AUTO) 1.2 10^3/uL (1.5-3.5); LYMPHOCYTES % (AUTO) 25.4 %; MEAN CORPUSCULAR HEMOGLOBIN 30.1 pg (27.0-31.0); MEAN CORPUSCULAR HGB CONC 33.2 g/dL (32.0-36.0); MEAN CORPUSCULAR VOLUME 90.5 fL (80.0-94.0); MEAN PLATELET VOLUME 9.5 fL (7.4-11.4); MONOCYTES # (AUTO) 0.6 10^3/uL (0.0-1.0); MONOCYTES % (AUTO) 12.3 %; NEUTROPHILS % (AUTO) 62.1 %; PLT - PLATELET COUNT 148 10^3/uL (130-450); RED BLOOD COUNT 5.39 10^6/uL (4.70-6.10); RED CELL DISTRIBUTION WIDTH 13.1 % (12.0-15.0); WHITE BLOOD COUNT 4.9 x10^3/uL (4.8-10.8)
[2020-09-21 08:51] LABS: ALBUMIN 4.6 g/dL (3.2-5.5); ALBUMIN/GLOBULIN RATIO 2.2 (1.0-2.2); ALKALINE PHOSPHATASE 62 IU/L (42-121); ALT ALANINE AMINOTRANSFERASE 26 IU/L (10-60); AST ASPARTATE AMINOTRANSFERASE 23 IU/L (10-42); BILIRUBIN,TOTAL 1.3 mg/dL (0.2-1.0); BUN - BLOOD UREA NITROGEN 19 mg/dL (6-20); CALCIUM 9.3 mg/dL (8.5-10.3); CARBON DIOXIDE - CO2 31 mmol/L (21-32); CHLORIDE 99 mmol/L (101-111); CHOL/HDL RATIO 5.1 (<5.0); CHOLESTEROL 200 mg/dL; CREATININE 1.1 mg/dL (0.6-1.2); GFR - MDRD 66 (>89); GLUCOSE 102 mg/dL (70-100); HDL CHOLESTEROL 39 mg/dL; LDL CHOLESTEROL,CALCULATED 136 mg/dL; LDL/HDL RATIO 3.5 (<3.6); POTASSIUM 4.3 mmol/L (3.5-5.0); SODIUM 137 mmol/L (135-145); TOTAL PROTEIN 6.7 g/dL (6.7-8.2); TRIGLYCERIDES 127 mg/dL; VLDL CHOLESTEROL 25 mg/dL
[2020-09-23 13:36] LABS: HEPATITIS C ANTIBODY NON-REACTIVE (NON-REACTIVE)
== END 2020-09-21 07:57 | disposition home or self-care (01) ==
LOC: LAB 07:56
PROVIDERS: ATTEND Family Medicine
DX: D69.6 Thrombocytopenia, unspecified (principal); Z11.59 Encounter for screening for other viral diseases; E78.5 Hyperlipidemia, unspecified
CPT/HCPCS: 36415; 80053; 80061; 83615; 83721; 85025; 86803

== ENCOUNTER 2021-01-06 08:56 | Outpatient (CLI) | payer MEDICARE ==
[2021-01-06 09:14] LABS: BASOPHILS % (AUTO) 0.2 %; HCT - HEMATOCRIT 47.6 % (42.0-52.0); LYMPHOCYTES # (AUTO) 0.9 10^3/uL (1.5-3.5); LYMPHOCYTES % (AUTO) 20.7 %; MEAN CORPUSCULAR HEMOGLOBIN 30.7 pg (27.0-31.0); MEAN CORPUSCULAR HGB CONC 33.6 g/dL (32.0-36.0); MEAN CORPUSCULAR VOLUME 91.4 fL (80.0-94.0); MEAN PLATELET VOLUME 9.7 fL (7.4-11.4); MONOCYTES # (AUTO) 0.5 10^3/uL (0.0-1.0); MONOCYTES % (AUTO) 11.9 %; NEUTROPHILS # (AUTO) 2.8 10^3/uL (1.5-6.6); NEUTROPHILS % (AUTO) 67.2 %; PLT - PLATELET COUNT 122 10^3/uL (130-450); RED BLOOD COUNT 5.21 10^6/uL (4.70-6.10); RED CELL DISTRIBUTION WIDTH 13.1 % (12.0-15.0); WHITE BLOOD COUNT 4.2 x10^3/uL (4.8-10.8)
[2021-01-06 09:23] LABS: CREATININE 1.2 mg/dL (0.6-1.2); POTASSIUM 4.5 mmol/L (3.5-5.0)
[2021-01-06 09:44] LABS: CHOL/HDL RATIO 3.2 (<5.0); CHOLESTEROL 126 mg/dL; HDL CHOLESTEROL 39 mg/dL; LDL CHOLESTEROL,CALCULATED 64 mg/dL; LDL/HDL RATIO 1.6 (<3.6); TRIGLYCERIDES 115 mg/dL; VLDL CHOLESTEROL 23 mg/dL
== END 2021-01-06 08:57 | disposition home or self-care (01) ==
LOC: LAB 08:56
PROVIDERS: ATTEND Internal Medicine Cardiovascular Disease
DX: I10 Essential (primary) hypertension (principal); C91.10 Chronic lymphocytic leukemia of B-cell type not having achieved remission
CPT/HCPCS: 36415; 80048; 80061; 83615; 83721; 85025

== ENCOUNTER 2021-01-10 13:55 | Outpatient (CLI) | payer MEDICARE | END 2021-01-10 13:56 | disposition home or self-care (01) | LOC: COV 13:55 | PROVIDERS: ATTEND Family Medicine | DX: R53.83 Other fatigue (principal); Z20.822 Contact with and (suspected) exposure to COVID-19 ==

== ENCOUNTER 2021-02-11 10:59 | Outpatient (CLI) | payer MEDICARE ==
[2021-02-11 12:09] LABS: PSA FREE 1.42 ng/mL (0.16-2.81)
[2021-02-11 12:10] LABS: PSA TOTAL 7.03 ng/mL (0.000-2.000)
== END 2021-02-11 11:00 | disposition home or self-care (01) ==
LOC: LAB 10:59
PROVIDERS: ATTEND Nurse Practitioner Family
DX: R97.20 Elevated prostate specific antigen [PSA] (principal)
CPT/HCPCS: 36415; 84153; 84154

== ENCOUNTER 2022-04-10 09:47 | Outpatient (CLI) | payer MEDICARE | END 2022-04-10 09:48 | disposition home or self-care (01) | LOC: LAB 09:47 | PROVIDERS: ATTEND Nurse Practitioner Family | DX: C61 Malignant neoplasm of prostate (principal) | CPT/HCPCS: 36415; 84153 ==

== ENCOUNTER 2022-09-26 18:49 | Outpatient (CLI) | payer MEDICARE ==
[2022-09-26 19:14] LABS: BASOPHILS % (AUTO) 0.1 %; EOSINOPHILS # (AUTO) 0.1 10^3/uL (0.0-0.7); EOSINOPHILS % (AUTO) 1.7 %; HGB - HEMOGLOBIN 14.4 g/dL (14.0-18.0); LYMPHOCYTES # (AUTO) 1.5 10^3/uL (1.5-3.5); LYMPHOCYTES % (AUTO) 22.1 %; MEAN CORPUSCULAR HEMOGLOBIN 27.9 pg (27.0-31.0); MEAN CORPUSCULAR HGB CONC 32.7 g/dL (32.0-36.0); MEAN CORPUSCULAR VOLUME 85.3 fL (80.0-94.0); MEAN PLATELET VOLUME 9.7 fL (7.4-11.4); MONOCYTES # (AUTO) 0.6 10^3/uL (0.0-1.0); MONOCYTES % (AUTO) 8.9 %; NEUTROPHILS # (AUTO) 4.7 10^3/uL (1.5-6.6); NEUTROPHILS % (AUTO) 66.8 %; PLT - PLATELET COUNT 167 10^3/uL (130-450); RED BLOOD COUNT 5.16 10^6/uL (4.70-6.10); RED CELL DISTRIBUTION WIDTH 13.9 % (12.0-15.0)
[2022-09-26 19:23] LABS: ALBUMIN 4.4 g/dL (3.2-5.5); ALBUMIN/GLOBULIN RATIO 2.1 (1.0-2.2); BILIRUBIN,TOTAL 1.1 mg/dL (0.2-1.0); CALCIUM 9.1 mg/dL (8.5-10.3); POTASSIUM 4.5 mmol/L (3.5-5.0); TOTAL PROTEIN 6.5 g/dL (6.7-8.2)
== END 2022-09-26 18:50 | disposition home or self-care (01) ==
LOC: LAB 18:49
PROVIDERS: ATTEND Nurse Practitioner
DX: C61 Malignant neoplasm of prostate (principal); C91.10 Chronic lymphocytic leukemia of B-cell type not having achieved remission
CPT/HCPCS: 36415; 80053; 84153; 85025

== ENCOUNTER 2023-02-09 13:30 | Outpatient (CLI) | payer MEDICARE ==
[2023-02-09 13:47] LABS: BASOPHILS % (AUTO) 0.1 %; EOSINOPHILS # (AUTO) 0.1 10^3/uL (0.0-0.7); EOSINOPHILS % (AUTO) 1.1 %; HCT - HEMATOCRIT 46.1 % (42.0-52.0); HGB - HEMOGLOBIN 15.1 g/dL (14.0-18.0); LYMPHOCYTES # (AUTO) 1.9 10^3/uL (1.5-3.5); LYMPHOCYTES % (AUTO) 23.4 %; MEAN CORPUSCULAR HEMOGLOBIN 28.8 pg (27.0-31.0); MEAN CORPUSCULAR HGB CONC 32.8 g/dL (32.0-36.0); MEAN PLATELET VOLUME 9.6 fL (7.4-11.4); MONOCYTES # (AUTO) 0.7 10^3/uL (0.0-1.0); MONOCYTES % (AUTO) 9.3 %; NEUTROPHILS # (AUTO) 5.2 10^3/uL (1.5-6.6); NEUTROPHILS % (AUTO) 65.6 %; PLT - PLATELET COUNT 153 10^3/uL (130-450); RED BLOOD COUNT 5.24 10^6/uL (4.70-6.10); RED CELL DISTRIBUTION WIDTH 13.6 % (12.0-15.0); WHITE BLOOD COUNT 7.9 x10^3/uL (4.8-10.8)
[2023-02-09 14:03] LABS: ALBUMIN 4.6 g/dL (3.2-5.5); ALBUMIN/GLOBULIN RATIO 3.3 (1.0-2.2); BILIRUBIN,TOTAL 0.7 mg/dL (0.2-1.0); CALCIUM 9.4 mg/dL (8.5-10.3); POTASSIUM 4.7 mmol/L (3.5-4.5)
== END 2023-02-09 13:31 | disposition home or self-care (01) ==
LOC: LAB 13:30
PROVIDERS: ATTEND Internal Medicine Medical Oncology
DX: C91.10 Chronic lymphocytic leukemia of B-cell type not having achieved remission (principal)
CPT/HCPCS: 36415; 80053; 85025

== ENCOUNTER 2023-02-26 11:39 | Outpatient (CLI) | payer MEDICARE | END 2023-02-26 11:40 | disposition home or self-care (01) | LOC: LAB 11:39 | PROVIDERS: ATTEND Radiology Radiation Oncology | DX: C61 Malignant neoplasm of prostate (principal) | CPT/HCPCS: 36415; 84153 ==

== ENCOUNTER 2023-03-01 09:10 | Outpatient (CLI) | payer MEDICARE | END 2023-03-01 09:11 | disposition home or self-care (01) | LOC: DI 09:10 | PROVIDERS: ATTEND Internal Medicine Cardiovascular Disease | DX: I08.1 Rheumatic disorders of both mitral and tricuspid valves (principal); I87.8 Other specified disorders of veins | CPT/HCPCS: 93306 ==

== ENCOUNTER 2023-04-11 14:32 | Emergency (ER) | payer MEDICARE ==
--- NOTE | 2023-04-11 15:22 | XRAY Report ---
PROCEDURE: Chest 2 View X-Ray INDICATIONS: COUGHING TECHNIQUE: 2 views of the chest were acquired. COMPARISON: None. FINDINGS: Surgical changes and devices: None. Lungs and pleura: No pleural effusions or pneumothorax. Lungs are clear. Mediastinum: Mediastinal contours appear normal. Heart size is normal. Bones and chest wall: No suspicious bony lesions. Overlying soft tissues appear unremarkable. IMPRESSION: No acute cardiopulmonary process. Reviewed by: Miracle Montez MD on 04/11/2023 3:21 PM [facility] Approved by: Miracle Montez MD on 04/11/2023 3:21 PM [facility] Station ID: [id number]
[2023-04-11] MEDS ORDERED: IPRATROPIUM/ALBUTEROL 3 ML NEB INH STA (15:32)
--- NOTE | 2023-04-11 15:36 | ED Physician Documentation ---
History of Present Illness - Stated complaint Stated Complaint: COUGH - Chief complaint Chief Complaint: Resp - History obtained from History obtained from: Patient - History of Present Illness Timing: How many days ago (3) Pain level max: 0 Pain level now: 0 - Additonal information Additional information: Patient is a 72-year-old male who presents with a cough for the past 3 days. He states his had pneumonia last week and he is concerned he may be developing pneumonia. Took a negative home COVID test. No respiratory difficulties. No fevers. No chills. Has used inhalers in the past but is not using one currently. Does not smoke. Cough is dry. No history of COPD, emphysema or structural lung disease. No chest pain. No nausea, vomiting, diarrhea. No abdominal pain. Review of Systems Constitutional: denies: Fever, Chills Nose: reports: Rhinorrhea / runny nose, Congestion Cardiac: denies: Chest pain / pressure, Palpitations Respiratory: reports: Cough, Wheezing Skin: denies: Rash Musculoskeletal: denies: Neck pain, Back pain Neurologic: denies: Headache PD PAST MEDICAL HISTORY - Past Medical History Past Medical History: Yes Cardiovascular: High cholesterol, Angina Respiratory: None Neuro: None Endocrine/Autoimmune: None GI: None : None HEENT: None Psych: None Musculoskeletal: None Derm: None - Past Surgical History Past Surgical History: Yes General: Appendectomy Cardiovascular: Coronary stent HEENT: Tonsil/Adenoidectomy - Present Medications Home Medications: Ambulatory Orders Medication Instructions Recorded Confirmed Pravastatin [Pravachol] 80 mg PO DAILY 01/07/17 05/07/18 Tamsulosin [Flomax] 0.8 mg PO DAILY 01/07/17 05/07/18 - Allergies Allergies/Adverse Reactions: Allergies Allergy/AdvReac Type Severity Reaction Status Date / Time morphine Allergy Dizziness Verified 04/11/23 14:41 - Social History Does the pt smoke?: No Smoking Status: Never smoker Does the pt drink ETOH?: No Does the pt have substance abuse?: Yes - Immunizations Immunizations are current?: Yes - POLST Patient has POLST: Yes POLST Status: Full Code (pt state he want to be full code) PD ED PE NORMAL - Vitals Vital signs reviewed: Yes - General General: Alert and oriented X 3, No acute distress - HEENT HEENT: PERRL, Moist mucous membranes - Neck Neck: Supple, no meningeal sign - Cardiac Cardiac: RRR, Strong equal pulses - Respiratory Respiratory: No respiratory distress, Other (Mild wheezing bilaterally.) - Abdomen Abdomen: Soft, Non tender, Non distended - Derm Derm: Warm and dry - Neuro Neuro: Alert and oriented X 3 - Psych Psych: Normal mood, Normal affect Results - Vitals Vitals: Vital Signs - 24 hr 04/11/23 04/11/23 04/11/23 14:33 15:44 15:48 Temperature 36.5 C 37.5 C Heart Rate 65 76 80 Respiratory 16 18 18 Rate Blood Pressure 143/78 H 125/71 O2 Saturation 97 98 Oxygen O2 Source Room air - Rads (name of study) cxr Relevant Findings:: Final report received, See rad report PD Medical Decision Making - ED course Complexity details: reviewed results, re-evaluated patient, considered differential, d/w patient ED course: Patient is well-appearing, nontoxic. Afebrile. Chest x-ray does to be later treatment. He has an albuterol inhaler at home. He declines any cough medication for home. No evidence of pneumonia on x-ray or clinically. Patient will follow-up with his PCP for further care. Patient counseled regarding signs and symptoms for which I believe and urgent re-evaluation would be necessary. Patient with good understanding of and agreement to plan and is comfortable going home at this time This document was made in part using voice recognition software. While efforts are made to proofread this document, sound alike and grammatical errors may occur. Not show any acute abnormalities. No respiratory distress. Mild wheezing that improved with Departure - Departure Disposition: 01 Home, Self Care Clinical Impression: Viral syndrome Condition: Good Instructions: ED Viral Syndrome Follow-Up: your,doctor in 1 week [Other] Comments: Please follow-up with your doctor for further care. Please return if you worsen. You appear to have a viral upper respiratory infection today. Your x- ray does not show any evidence of pneumonia. You were given a breathing treatment here. You can use your albuterol at home. Forms: PCP List
[2023-04-11 16:03] VITALS: BP 130/82; O2SAT 100
== END 2023-04-11 15:59 | disposition home or self-care (01) ==
LOC: ED 14:32
DX: B34.9 Viral infection, unspecified (principal); R20.2 Paresthesia of skin
CPT/HCPCS: 36415; 80053; 82607; 82746; 83036; 84443; 85025; 86140; 86803; 94640; 99283

== ENCOUNTER 2023-04-11 14:44 | Outpatient (CLI) | payer MEDICARE ==
[2023-04-11 15:03] LABS: BASOPHILS % (AUTO) 0.1 %; EOSINOPHILS # (AUTO) 0.2 10^3/uL (0.0-0.7); EOSINOPHILS % (AUTO) 1.7 %; HCT - HEMATOCRIT 48.5 % (42.0-52.0); LYMPHOCYTES # (AUTO) 2.2 10^3/uL (1.5-3.5); LYMPHOCYTES % (AUTO) 23.7 %; MEAN CORPUSCULAR HEMOGLOBIN 28.2 pg (27.0-31.0); MEAN CORPUSCULAR VOLUME 85.5 fL (80.0-94.0); MEAN PLATELET VOLUME 8.8 fL (7.4-11.4); MONOCYTES % (AUTO) 10.8 %; NEUTROPHILS % (AUTO) 63.4 %; PLT - PLATELET COUNT 130 10^3/uL (130-450); RED BLOOD COUNT 5.67 10^6/uL (4.70-6.10); RED CELL DISTRIBUTION WIDTH 13.5 % (12.0-15.0); WHITE BLOOD COUNT 9.5 x10^3/uL (4.8-10.8)
[2023-04-11 16:04] LABS: THYROID STIMULATING HORMONE 3.09 uIU/mL (0.34-5.60)
[2023-04-11 16:08] LABS: ALBUMIN 4.5 g/dL (3.2-5.5); ALBUMIN/GLOBULIN RATIO 2.3 (1.0-2.2); CALCIUM 9.4 mg/dL (8.5-10.3); CREATININE 1.2 mg/dL (0.6-1.3); CRP - C-REACTIVE PROTEIN 0.9 mg/dL (<0.5); POTASSIUM 4.6 mmol/L (3.5-4.5); TOTAL PROTEIN 6.5 g/dL (6.4-8.9)
[2023-04-11 20:05] LABS: ESTIMATED AVERAGE GLUCOSE 105 mg/dL (70-100); HEMOGLOBIN A1c% 5.3 % (4.27-6.07)
[2023-04-12 03:10] LABS: HCV AB Non Reactive (Non Reactive)
== END 2023-04-11 14:45 | disposition home or self-care (01) ==
LOC: LAB 14:44
PROVIDERS: ATTEND Internal Medicine
DX: R20.2 Paresthesia of skin (principal)
CPT/HCPCS: 36415; 80053; 82607; 82746; 83036; 84443; 85025; 86140; 86803

== ENCOUNTER 2023-07-05 10:39 | Outpatient (CLI) | payer MEDICARE ==
[2023-07-05 11:18] LABS: BILIRUBIN,URINE NEGATIVE (NEGATIVE); GLUCOSE, URINE (UA) NEGATIVE (NEGATIVE); KETONES,URINE (UA) NEGATIVE (NEGATIVE); LEUKOCYTE ESTERASE, URINE NEGATIVE (NEGATIVE); NITRITE,URINE NEGATIVE (NEGATIVE); OCCULT BLOOD,URINE MODERATE (NEGATIVE); PROTEIN,URINE NEGATIVE (NEGATIVE); UROBILINOGEN,URINE 0.2 (NORMAL) E.U./dL (NORMAL)
[2023-07-05 11:19] LABS: CLARITY,URINE CLEAR (CLEAR)
[2023-07-05 11:28] LABS: WBC,URINE 0-3 /HPF (0-3)
[2023-07-05 11:29] LABS: BACTERIA,URINE Few /HPF (None Seen); RBC,URINE 0-5 /HPF (0-5); SQUAMOUS EPITHELIAL CELL,UR FEW Squamous (<= Few)
== END 2023-07-05 10:40 | disposition home or self-care (01) ==
LOC: LAB 10:39
PROVIDERS: ATTEND Nurse Practitioner Family
DX: R31.9 Hematuria, unspecified (principal); R10.2 Pelvic and perineal pain
CPT/HCPCS: 81001; 87086

== ENCOUNTER 2023-08-10 18:24 | Outpatient (CLI) | payer MEDICARE ==
[2023-08-10 18:37] LABS: BASOPHILS % (AUTO) 0.2 %; EOSINOPHILS % (AUTO) 0.6 %; HCT - HEMATOCRIT 40.9 % (42.0-52.0); HGB - HEMOGLOBIN 13.2 g/dL (14.0-18.0); LYMPHOCYTES % (AUTO) 62.2 %; MEAN CORPUSCULAR HEMOGLOBIN 27.7 pg (27.0-31.0); MEAN CORPUSCULAR HGB CONC 32.3 g/dL (32.0-36.0); MEAN CORPUSCULAR VOLUME 85.9 fL (80.0-94.0); MEAN PLATELET VOLUME 8.6 fL (7.4-11.4); MONOCYTES % (AUTO) 12.6 %; NEUTROPHILS % (AUTO) 23.2 %; PLT - PLATELET COUNT 67 10^3/uL (130-450); RED BLOOD COUNT 4.76 10^6/uL (4.70-6.10); RED CELL DISTRIBUTION WIDTH 15.2 % (12.0-15.0)
[2023-08-10 18:39] LABS: ABNORMAL LYMPHS % (MANUAL) 0 %
[2023-08-10 19:01] LABS: BAND NEUTROPHILS % (MANUAL) 1 %; LYMPHOCYTES # (MANUAL) 12.8 10^3/uL (1.5-3.5); LYMPHOCYTES % (MANUAL) 12 %; MONOCYTES # (MANUAL) 0.6 10^3/uL (0.0-1.0); NEUTROPHILS # (MANUAL) 6.6 10^3/uL (1.5-6.6); PLATELET ESTIMATE, MANUAL DECREASED (<130,000) (NORMAL); PLATELET MORPHOLOGY NORMAL APPEARANCE (NORMAL); RBC MORPHOLOGY (MULTIPLE) NORMAL APPEARANCE (NORMAL); REACTIVE LYMPHS % (MANUAL) 52 %
[2023-08-10 19:02] LABS: DIFFERENTIAL COMMENT MANUAL DIFFERENTIAL
== END 2023-08-10 18:25 | disposition home or self-care (01) ==
LOC: LAB 18:24
PROVIDERS: ATTEND Physician Assistant
DX: C91.10 Chronic lymphocytic leukemia of B-cell type not having achieved remission (principal)
CPT/HCPCS: 36415; 85025

== ENCOUNTER 2023-10-08 19:27 | Outpatient (CLI) | payer MEDICARE ==
[2023-10-08 19:44] LABS: HGB - HEMOGLOBIN 10.1 g/dL (14.0-18.0); LYMPHOCYTES # (AUTO) 0.6 10^3/uL (1.5-3.5); LYMPHOCYTES % (AUTO) 20.1 %; MEAN CORPUSCULAR HEMOGLOBIN 29.3 pg (27.0-31.0); MEAN CORPUSCULAR HGB CONC 32.6 g/dL (32.0-36.0); MEAN CORPUSCULAR VOLUME 89.9 fL (80.0-94.0); MEAN PLATELET VOLUME 8.7 fL (7.4-11.4); MONOCYTES # (AUTO) 0.4 10^3/uL (0.0-1.0); MONOCYTES % (AUTO) 11.7 %; NEUTROPHILS # (AUTO) 2.1 10^3/uL (1.5-6.6); NEUTROPHILS % (AUTO) 67.9 %; PLT - PLATELET COUNT 121 10^3/uL (130-450); RED BLOOD COUNT 3.45 10^6/uL (4.70-6.10); WHITE BLOOD COUNT 3.1 x10^3/uL (4.8-10.8)
[2023-10-08 19:55] LABS: ALBUMIN 4.4 g/dL (3.2-5.5); ALBUMIN/GLOBULIN RATIO 8.8 (1.0-2.2); BILIRUBIN,TOTAL 1.7 mg/dL (0.2-1.0); CALCIUM 9.2 mg/dL (8.5-10.3); CREATININE 1.2 mg/dL (0.6-1.3); POTASSIUM 4.8 mmol/L (3.5-4.5); TOTAL PROTEIN 4.9 g/dL (6.4-8.9)
== END 2023-10-08 19:28 | disposition home or self-care (01) ==
LOC: LAB 19:27
PROVIDERS: ATTEND Nurse Practitioner
DX: C91.10 Chronic lymphocytic leukemia of B-cell type not having achieved remission (principal)
CPT/HCPCS: 36415; 80053; 85025

== ENCOUNTER 2023-11-27 17:21 | Outpatient (CLI) | payer MEDICARE ==
--- NOTE | 2023-11-28 20:03 | XRAY Report ---
PROCEDURE: Chest 2V INDICATIONS: COUGH TECHNIQUE: 2 views of the chest were obtained. COMPARISON: None. FINDINGS: Surgical changes and devices: None. Lungs and pleura: No pleural effusions or pneumothorax. Lungs are clear. Mediastinum: Mediastinal contours appear normal. Heart size is normal. Bones and chest wall: No suspicious bony lesions. Overlying soft tissues appear unremarkable. IMPRESSION: Normal two-view chest x-ray Reviewed by: Eren oFx MD on 11/28/2023 7:02 PM [facility] Approved by: Eren Fox MD on 11/28/2023 7:02 PM [facility] Station ID: [id number]
--- NOTE | 2023-11-28 20:04 | XRAY Report ---
PROCEDURE: Sinus 3+V INDICATIONS: COUGH TECHNIQUE: 3 views of the sinuses were acquired. COMPARISON: None FINDINGS: Sinuses: The visualized sinuses well aerated without air-fluid levels. The visualized mastoids also appear clear. Bones: No suspicious bony lesions. Nasal septum is midline. IMPRESSION: Unremarkable paranasal sinus radiographs Reviewed by: Eren Fox MD on 11/28/2023 7:02 PM [facility] Approved by: Eren Fox MD on 11/28/2023 7:02 PM [facility] Station ID: [id number]
== END 2023-11-27 17:22 | disposition home or self-care (01) ==
LOC: DI 17:21
PROVIDERS: ATTEND Internal Medicine
DX: R05.9 Cough, unspecified (principal)